=== PATIENT | male | born 1955 | race Caucasian/White ===

== ENCOUNTER 2017-07-08 16:45 | Emergency (ER) | payer BC ==
--- NOTE | 2017-07-08 17:24 | EDM.PDOC ---
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 There is no redness warmth or swelling again no trauma to the knee no fever nausea vomiting chills sweats chest pain shortness breath headache dizziness palpitation about a urine symptoms ] Review of systems: As per history of present illness and below otherwise all systems reviewed and negative. Past medical history: As per history of present illness and as reviewed below otherwise noncontributory. Surgical history: As per history of present illness and as reviewed below otherwise noncontributory. Social history: No reported history of drug or alcohol abuse. Family history: As per history of present illness and as reviewed below otherwise noncontributory. Physical exam: HEENT: Atraumatic, normocephalic, pupils reactive, negative for conjunctival pallor or scleral icterus, mucous membranes moist, throat clear, neck supple, nontender, trachea midline. Lungs: Clear to auscultation, breath sounds equal bilaterally, chest nontender. Heart: S1S2, regular, negative for clicks, rubs, or JVD. Abdomen: Soft, nondistended, nontender. Negative for masses or hepatosplenomegaly. Negative for costovertebral tenderness. Pelvis: Stable nontender. Genitourinary: Deferred. Rectal: Deferred. Extremities: Atraumatic, negative for cords or calf pain. Neurovascular unremarkable. Neuro: Awake, alert, oriented. Cranial nerves II through XII unremarkable. Cerebellum unremarkable. Motor and sensory unremarkable throughout. Exam nonfocal. Left knee exam hip and ankle and affected patient complains of knee pain with weightbearing with loadbearing maneuvers centers pain and less motion of the joint passively entire limb is neurovascularly intact there is no redness warmth or swelling no open lesion no ballooning of the patellofemoral joint line tenderness Diagnostics: [Left knee 3 views CBC uric acid ] Therapeutics: [Continue Celebrex Tramadol 50 mg by mouth 3 times a day when necessary #30 no refill Crutches provided weightbearing as tolerated Did provide a work note for the patient for 48 hours Follow-up with orthopedist consider steroid injection and discuss knee replacement further Return to ER if redness warmth or becomes swollen ] Impression: [Left knee pain Degenerative changes left knee] Definitive disposition and diagnosis as appropriate pending reevaluation and review of above. Left Knee Pain Score (Numeric/FACES): 10 - Related Data Allergies Allergy/AdvReac Type Severity Reaction Status Date / Time No Known Allergies Allergy Verified 07/08/17 17:18 Home Meds: Home Meds Celecoxib [CeleBREX] 100 mg PO DAILY 07/08/17 [History] Polyethylene Glycol 3350 [MiraLAX] 1 dose PO DAILY 07/08/17 [History] Past Medical History - Infectious Disease History Infectious Disease History: Reports: Chicken Pox, Measles, Mumps - Past Surgical History GI Surgical History: Reports: Other (See Below) Other GI Surgeries/Procedures: 1970 colon resection Other Musculoskeletal Surgeries/Procedures:: right knee hx of spurs Social & Family History - Family History Family Medical History: Noncontributory - Tobacco Use Smoking Status *Q: Current Every Day Smoker Years of Tobacco use: 40 Packs/Tins Daily: 1 Second Hand Smoke Exposure: No - Caffeine Use Caffeine Use: Reports: Coffee, Soda - Recreational Drug Use Recreational Drug Use: No Review of Systems - Review of Systems Review Of Systems: ROS reveals no pertinent complaints other than HPI. ED EXAM, GENERAL - Physical Exam Exam: See Below Course - Vital Signs Last Recorded V/S: Last Vital Signs Temp 98.9 F 07/08/17 17:12 Pulse 92 07/08/17 17:12 Resp 18 07/08/17 17:12 BP 123/78 07/08/17 17:12 Pulse Ox 95 07/08/17 17:12 - Orders/Labs/Meds Orders: Active Orders 24 hr Category Date Time Status Knee 3V Lt [CR] Stat Exams 07/08/17 17:19 Taken Labs: Laboratory Tests 07/08/17 07/08/17 Range/Units 17:29 17:29 WBC 12.11 H (4.0-11.0) K/uL RBC 5.05 (4.50-5.90) M/uL Hgb 16.1 (13.0-17.0) g/dL Hct 45.7 (38.0-50.0) % MCV 90.5 (80.0-98.0) fL MCH 31.9 (27.0-32.0) pg MCHC 35.2 (31.0-37.0) g/dL RDW Std Deviation 41.1 (28.0-62.0) fl RDW Coeff of Ad 13 (11.0-15.0) % Plt Count 235 (150-400) K/uL MPV 9.20 (7.40-12.00) fL Neut % (Auto) 72.8 (48.0-80.0) % Lymph % (Auto) 18.7 (16.0-40.0) % [place] % (Auto) 6.9 (0.0-15.0) % Eos % (Auto) 1.3 (0.0-7.0) % Baso % (Auto) 0.3 (0.0-1.5) % Neut # (Auto) 8.8 H (1.4-5.7) K/uL Lymph # (Auto) 2.3 (0.6-2.4) K/uL [place] # (Auto) 0.8 (0.0-0.8) K/uL Eos # (Auto) 0.2 (0.0-0.7) K/uL Baso # (Auto) 0.0 (0.0-0.1) K/uL Nucleated RBC % 0.0 /100WBC Nucleated RBCs # 0 K/uL Uric Acid 6.1 (2.1-7.4) mg/dL Departure - Departure Time of Disposition: 18:49 Disposition: Home, Self-Care 01 Condition: Good Clinical Impression: Left knee pain, Osteoarthritis - Discharge Information Referrals: Vernon Maldonado MD [Primary Care Provider] - Forms: ED Department Discharge Additional Instructions: ER referral to orthopedist for evaluation and treatment within the next week Crutches weightbearing as tolerated Return if symptoms persist or worsen Return if redness warmth versus significant swelling develops Follow-up with primary care as needed Medication as prescribed Continue Celebrex as directed [facility] [address], [address] [place] [address] my orthopedic The following information is given to patients seen in the emergency department who are being discharged to home. This information is to outline your options for follow-up care. We provide all patients seen in our emergency department with a follow-up referral. The need for follow-up, as well as the timing and circumstances, are variable depending upon the specifics of your emergency department visit. If you don't have a primary care physician on staff, we will provide you with a referral. We always advise you to contact your personal physician following an emergency department visit to inform them of the circumstance of the visit and for follow-up with them and/or the need for any referrals to a consulting specialist. The emergency department will also refer you to a specialist when appropriate. This referral assures that you have the opportunity for follow-up care with a specialist. All of these measure are taken in an effort to provide you with optimal care, which includes your follow-up. Under all circumstances we always encourage you to contact your private physician who remains a resource for coordinating your care. When calling for follow-up care, please make the office aware that this follow-up is from your recent emergency room visit. If for any reason you are refused follow-up, please contact the [facility] emergency department at and asked to speak to the emergency department charge nurse. - My Orders Last 24 Hours: My Active Orders 07/08/17 17:19 Knee 3V Lt [CR] Stat - Assessment/Plan Last 24 Hours: My Active Orders 07/08/17 17:19 Knee 3V Lt [CR] Stat
[2017-07-08 19:10] VITALS: BP 143/90
--- NOTE | 2017-07-09 14:40 | CR ---
EXAM DATE: 07/08/17 PATIENT'S AGE: 62 Patient: PRUDENCIO ELAINE Facility: [place], [place] Site . Site : 1955 Study: XRay Knee Left [id number]/15/2018 5:56:30 PM Ordering Physician: Doctor Waddell Final Report: INDICATION: Pain left knee with no history of trauma TECHNIQUE: Three views left knee COMPARISON: None FINDINGS: Bones: Alignment is normal. No fractures or bone lesions. Joint spaces: Patellofemoral joint degenerative changes. Soft tissues: Unremarkable. IMPRESSION: Patellofemoral joint degenerative changes. Dictated by Jose Angel Stanley MD @ 07/08/2017 6:36:02 PM Dictated by: Jose Angel Stanley MD @ 07/08/2017 18:36:10 (Electronic Signature) Report Signed by Proxy. [email or web address]
== END 2017-07-08 19:18 | disposition home or self-care (01) ==
LOC: MW.ED 16:45
DX: M25.562 Pain in left knee (principal); M19.90 Unspecified osteoarthritis, unspecified site; F17.210 Nicotine dependence, cigarettes, uncomplicated; Z79.899 Other long term (current) drug therapy
CPT/HCPCS: 36415; 73562-26-LT; 73562-LT; 84550; 85025; 99283

== ENCOUNTER 2019-01-27 18:12 | Emergency (ER) | payer BC ==
[2019-01-27] MEDS ORDERED: Ondansetron 4 MG/2 ML SDV IVPUSH ONE (18:29)
[2019-01-27] MEDS ORDERED: Sodium Chloride 0.9% 1,000 ML IV ONE (18:29)
--- NOTE | 2019-01-27 18:32 | EDM.PDOC ---
ED HPI GENERAL MEDICAL PROBLEM - General Chief Complaint: Abdominal Pain Stated Complaint: POSSIBLE KIDNEY STONE Time Seen by Provider: 01/27/19 18:18 Source of Information: Reports: Patient History Limitations: Reports: No Limitations - History of Present Illness INITIAL COMMENTS - FREE TEXT/NARRATIVE: HISTORY AND PHYSICAL: History of present illness: Presents reporting left flank and testicular pain. The patient states he has a history of renal stones. Once he was able to pass the stone, once he had a lithotripsy. He states this pain is very similar. He denies fever, back pain, dysuria, hematuria. He had a brown formed stool 2 days ago. Review of systems: As per history of present illness and below otherwise all systems reviewed and negative. Past medical history: As per history of present illness and as reviewed below otherwise noncontributory. Surgical history: As per history of present illness and as reviewed below otherwise noncontributory. Social history: No reported history of drug or alcohol abuse. Family history: As per history of present illness and as reviewed below otherwise noncontributory. Physical exam: HEENT: Atraumatic, normocephalic, pupils reactive, negative for conjunctival pallor or scleral icterus, mucous membranes moist, throat clear, neck supple, nontender, trachea midline. Lungs: Clear to auscultation, breath sounds equal bilaterally, chest nontender. Heart: S1S2, regular, negative for clicks, rubs, or JVD. Abdomen: Soft, nondistended, nontender. Negative for masses or hepatosplenomegaly. Negative for costovertebral tenderness. Pelvis: Stable nontender. Genitourinary: Deferred. Rectal: Deferred. Extremities: Atraumatic, negative for cords or calf pain. Neurovascular unremarkable. Neuro: Awake, alert, oriented. Cranial nerves II through XII unremarkable. Cerebellum unremarkable. Motor and sensory unremarkable throughout. Exam nonfocal. Diagnostics: [] Therapeutics: [] Impression: [] Plan: [] Definitive disposition and diagnosis as appropriate pending reevaluation and review of above. Left Lower Abdominal Pain Score (Numeric/FACES): 5 - Related Data Allergies Allergy/AdvReac Type Severity Reaction Status Date / Time No Known Allergies Allergy Verified 01/27/19 18:26 Home Meds: Home Meds Celecoxib [CeleBREX] 200 mg PO DAILY 07/08/17 [History] Polyethylene Glycol 3350 [MiraLAX] 1 dose PO DAILY 07/08/17 [History] metFORMIN HCl [Metformin HCl] 500 mg PO BID #14 tablet 01/27/19 [Rx] Past Medical History - Infectious Disease History Infectious Disease History: Reports: Chicken Pox, Measles, Mumps - Past Surgical History GI Surgical History: Reports: Other (See Below) Other GI Surgeries/Procedures: 1970 colon resection Other Musculoskeletal Surgeries/Procedures:: right knee hx of spurs Social & Family History - Family History Family Medical History: Noncontributory - Caffeine Use Caffeine Use: Reports: Coffee, Soda ED ROS GENERAL - Review of Systems Review Of Systems: ROS reveals no pertinent complaints other than HPI. ED EXAM, RENAL/ - Physical Exam Exam: See Below Exam Limited By: No Limitations General Appearance: Alert, No Apparent Distress Ears: Normal External Exam Nose: Normal Inspection Throat/Mouth: Normal Inspection Head: Atraumatic, Normocephalic Neck: Normal Inspection Respiratory/Chest: No Respiratory Distress, Lungs Clear, Normal Breath Sounds Cardiovascular: Normal Peripheral Pulses, Regular Rate, Rhythm, No Murmur GI/Abdominal: Soft, Non-Tender, No Distention Back Exam: Normal Inspection. No: CVA Tenderness (L), CVA Tenderness (R) Extremities: Normal Inspection Neurological: Alert, Oriented, Normal Cognition Psychiatric: Normal Affect, Normal Mood Lymphatic: No Adenopathy Course - Vital Signs Last Recorded V/S: Last Vital Signs Temp 36.3 C 01/27/19 18:23 Pulse 86 01/27/19 18:23 Resp 18 01/27/19 18:23 BP 142/97 H 01/27/19 18:23 Pulse Ox 95 01/27/19 18:23 - Orders/Labs/Meds Labs: Laboratory Tests 01/27/19 01/27/19 01/27/19 Range/Units 18:30 18:30 18:32 WBC 13.16 H (4.0-11.0) K/uL RBC 4.99 (4.50-5.90) M/uL Hgb 15.8 (13.0-17.0) g/dL Hct 46.6 (38.0-50.0) % MCV 93.4 (80.0-98.0) fL MCH 31.7 (27.0-32.0) pg MCHC 33.9 (31.0-37.0) g/dL RDW Std Deviation 44.2 (28.0-62.0) fl RDW Coeff of Ad 13 (11.0-15.0) % Plt Count 217 (150-400) K/uL MPV 9.70 (7.40-12.00) fL Add Manual Diff YES Neutrophils % (Manual) 66 (48.0-80.0) % Lymphocytes % (Manual) 19 (16.0-40.0) % Monocytes % (Manual) 10 (0.0-15.0) % Eosinophils % (Manual) 1 (0.0-7.0) % Metamyelocytes % 2 % Myelocytes % 2 % Nucleated RBC % 0.0 /100WBC Absolute Seg Neuts 8.7 H (1.4-5.7) Lymphocytes # (Manual) 2.5 H (0.6-2.4) Monocytes # (Manual) 1.3 H (0.0-0.8) Eosinophils # (Manual) 0.1 (0.0-0.7) Absolute Metamyelocyte 0.3 Absolute Myelocytes 0.3 Nucleated RBCs # 0 K/uL Sodium 142 (136-148) mmol/L Potassium 4.4 (3.5-5.1) mmol/L Chloride 106 (98-107) mmol/L Carbon Dioxide 22.6 (21.0-32.0) mmol/L BUN 16 (7.0-18.0) mg/dL Creatinine 1.3 (0.8-1.3) mg/dL Est Cr Clr Drug Dosing 67.44 mL/min Estimated GFR (MDRD) 56.1 ml/min Glucose 280 H (74-106) mg/dL Calcium 9.2 (8.5-10.1) mg/dL Total Bilirubin 0.4 (0.2-1.0) mg/dL AST 14 L (15-37) IU/L ALT 31 (14-63) IU/L Alkaline Phosphatase 96 (46-116) U/L Total Protein 7.0 (6.4-8.2) g/dL Albumin 3.8 (3.4-5.0) g/dL Globulin 3.2 (2.6-4.0) g/dL Albumin/Globulin Ratio 1.2 (0.9-1.6) Urine Color YELLOW Urine Appearance CLEAR Urine pH 5.0 (5.0-8.0) Ur Specific [place] >= 1.030 (1.001-1.035) Urine Protein TRACE H (NEGATIVE) mg/dL Urine Glucose (UA) >=1000 (NEGATIVE) mg/dL Urine Ketones NEGATIVE (NEGATIVE) mg/dL Urine Occult Blood MODERATE H (NEGATIVE) Urine Nitrite NEGATIVE (NEGATIVE) Urine Bilirubin NEGATIVE (NEGATIVE) Urine Urobilinogen 0.2 (<2.0) EU/dL Ur Leukocyte Esterase NEGATIVE (NEGATIVE) Urine RBC 1-3 (0-2/HPF) Urine WBC 0-1 (0-5/HPF) Ur Epithelial Cells RARE (NONE-FEW) Urine Bacteria RARE (NEGATIVE) Hyaline Casts 0-1 (0-2/LPF) Urine Mucus LIGHT (NONE-MOD) Meds: Medications Discontinued Medications Generic Name Dose Route Start Last Admin Trade Name Freq PRN Reason Stop Dose Admin Sodium Chloride 1,000 mls @ 999 mls/hr 01/27/19 18:29 01/27/19 18:36 Normal Saline IV 01/27/19 19:29 999 mls/hr STAT ONE Administration Ketorolac Tromethamine 30 mg 01/27/19 19:29 01/27/19 19:34 Toradol IVPUSH 01/27/19 19:30 30 mg ONETIME ONE Administration Ondansetron HCl 4 mg 01/27/19 18:29 01/27/19 18:36 Zofran IVPUSH 01/27/19 18:30 4 mg ONETIME ONE Administration - Re-Assessments/Exams Free Text/Narrative Re-Assessment/Exam: 01/27/19 20:40 Patient states that a couple of years ago he was told that he had "prediabetes" . That was never followed up on. The patient was informed that he has out right diabetes and he must follow-up with his primary care provider in a inclusion special educator. Departure - Departure Time of Disposition: 20:40 Disposition: Home, Self-Care 01 Condition: Good Clinical Impression: Diabetes Qualifiers: Diabetes mellitus type: type 2 Constipation Qualifiers: Constipation type: unspecified constipation type Qualified Code(s): K59.00 - Constipation, unspecified - Discharge Information *PRESCRIPTION DRUG MONITORING PROGRAM REVIEWED*: Not Applicable *COPY OF PRESCRIPTION DRUG MONITORING REPORT IN PATIENT DRE: Not Applicable Referrals: Vernon Maldonado MD [Primary Care Provider] - Forms: ED Department Discharge Additional Instructions: The following information is given to patients seen in the emergency department who are being discharged to home. This information is to outline your options for follow-up care. We provide all patients seen in our emergency department with a follow-up referral. The need for follow-up, as well as the timing and circumstances, are variable depending upon the specifics of your emergency department visit. If you don't have a primary care physician on staff, we will provide you with a referral. We always advise you to contact your personal physician following an emergency department visit to inform them of the circumstance of the visit and for follow-up with them and/or the need for any referrals to a consulting specialist. The emergency department will also refer you to a specialist when appropriate. This referral assures that you have the opportunity for follow-up care with a specialist. All of these measure are taken in an effort to provide you with optimal care, which includes your follow-up. Under all circumstances we always encourage you to contact your private physician who remains a resource for coordinating your care. When calling for follow-up care, please make the office aware that this follow-up is from your recent emergency room visit. If for any reason you are refused follow-up, please contact the [facility] Emergency Department at and asked to speak to the emergency department charge nurse. 1. MiraLAX 1 capful daily until regular soft bowel movements then as needed. 2. Drink plenty of fluids including electrolyte solutions 3. You MUST follow-up with your primary care provider and a inclusion special educator to develop a diabetic management plan. You have been given a Rx for metformin. This is a first line medication for diabetes. Note that initially, metformin often causes stomach upset and nausea. This common and usually resolves with continued use.
[2019-01-27 18:59] LABS: CARBON DIOXIDE,CO2 22.6 mmol/L (21.0-32.0); POTASSIUM,K 4.4 mmol/L (3.5-5.1)
[2019-01-27] MEDS ORDERED: Ketorolac 30 MG/ML SDV IVPUSH ONE (19:29)
--- NOTE | 2019-01-27 20:10 | CT ---
INDICATION: left side/flank/testicular pain, hx stones INDICATION: Left-sided flank and testicular pain, history of urinary tract stones TECHNIQUE: CT abdomen and pelvis without contrast. COMPARISON: None FINDINGS: Lower chest: Unremarkable. Liver: Unremarkable. Spleen: Unremarkable. Pancreas: Unremarkable. Gallbladder and bile ducts: Unremarkable. Kidneys: Unremarkable. No kidney or ureteral stones and no hydronephrosis. Adrenal glands: Unremarkable. GI tract: Diffuse colonic fecal retention. Vascular structures: Unremarkable. Lymph nodes: Unremarkable. Miscellaneous: Small fat containing umbilical hernia. No free air or significant free fluid. Pelvic Organs: Unremarkable. Bones: Unremarkable for age. IMPRESSION: No urinary tract stones or hydronephrosis. Diffuse colonic fecal retention. Dictated by Jose Angel Stanley MD @ 01/27/2019 8:08:36 PM Please note that all CT scans at this facility use dose modulation, iterative reconstruction, and/or weight-based dosing when appropriate to reduce radiation dose to as low as reasonably achievable. Dictated by: Jose Angel Stanley MD @ 01/27/2019 20:08:50 (Electronically Signed)
[2019-01-27 21:11] VITALS: BP 127/74; PULSE 69
== END 2019-01-27 21:08 | disposition home or self-care (01) ==
LOC: MW.ED 18:12
DX: K59.00 Constipation, unspecified (principal); E11.9 Type 2 diabetes mellitus without complications; Z79.84 Long term (current) use of oral hypoglycemic drugs; Z79.899 Other long term (current) drug therapy
CPT/HCPCS: 36415; 74176; 80053; 81001; 85025; 96361; 96374; 96375; 99284; J1885; J2405; J7040; 99283

== ENCOUNTER 2019-02-05 09:47 | Emergency (ER) | payer BC ==
[2019-02-05] MEDS ORDERED: Sodium Chloride 0.9% 1,000 ML IV ONE (10:17)
--- NOTE | 2019-02-05 10:25 | EDM.PDOC ---
ED HPI GENERAL MEDICAL PROBLEM - General Chief Complaint: Gastrointestinal Problem Stated Complaint: MAY HAVE A BOWEL BLOCKAGE Time Seen by Provider: 02/05/19 10:09 Source of Information: Reports: Patient History Limitations: Reports: No Limitations - History of Present Illness INITIAL COMMENTS - FREE TEXT/NARRATIVE: HISTORY AND PHYSICAL: History of present illness: Patient is a 63-year-old male presents to the ED today with concern of generalized abdominal pain (08/03) and not being able to pass a full bowel movement for 2 weeks but does state he has been able to pass smaller amounts. Patient states he was seen in the ED 2 weeks ago for constipation. Patient states at that time he had started trying magnesium citrate and started MiraLAX without passing a large stool and only small stools. Patient states he's been taking one cap full of MiraLAX daily. Patient states he's also had 4 individual bottles of magnesium citrate over the course of the last 2 weeks without being able to have a complete bowel movement. Patient states he has passed gas but feels that it is quite difficult to do this and has to "push harder ". Patient denies any health history. Patient denies fever, chills, chest pain, shortness of breath, or cough. Denies headache, neck stiff ness, change in vision, syncope, or near syncope. Denies nausea, vomiting, diarrhea, constipation, or dysuria. Has not noted any blood in urine or stool. Patient has been eating and drinking appropriately. Review of systems: As per history of present illness and below otherwise all systems reviewed and negative. Past medical history: As per history of present illness and as reviewed below otherwise noncontributory. Surgical history: As per history of present illness and as reviewed below otherwise noncontributory. Social history: See social history for further information Family history: As per history of present illness and as reviewed below otherwise noncontributory. Physical exam: General: Patient is alert, oriented, and in no acute distress. Patient sitting comfortably on exam table. HEENT: Atraumatic, normocephalic, pupils equal and reactive bilaterally, negative for conjunctival pallor or scleral icterus, mucous membranes moist, TMs normal bilaterally, throat clear, neck supple, nontender, trachea midline. No drooling or trismus noted. No meningeal signs. No hot potato voice noted. Lungs: Clear to auscultation, breath sounds equal bilaterally, chest nontender. Heart: S1S2, regular rate and rhythm without overt murmur Abdomen: Obese, Soft, nondistended. Generalized mild pain to with deep palpation without guarding. Negative rebound. Negative for masses or hepatosplenomegaly. Negative for costovertebral tenderness. Pelvis: Stable nontender. Genitourinary: Deferred. Rectal: Deferred. Skin: Intact, warm, dry. No lesions or rashes noted. Extremities: Atraumatic, negative for cords or calf pain. Neurovascular unremarkable. Neuro: Awake, alert, oriented. Cranial nerves II through XII unremarkable. Cerebellum unremarkable. Motor and sensory unremarkable throughout. Exam nonfocal. Notes: Discussed the importance for follow-up with a primary care provider. Voices understanding and is agreeable to plan of care. Denies any further questions or concerns at this time. Diagnostics: CBC, CMP, EKG, UA, Lipase, Abd/Pelvic CT w/ contrast Therapeutics: NS Prescription: None Impression: Constipation Plan: 1. You can alternate ibuprofen and Tylenol as checked for pain and discomfort. 2. You can continue to use OTC constipation medications as discussed. 3. Follow-up with a primary care provider as discussed. Return to the ED as needed and as discussed. Definitive disposition and diagnosis as appropriate pending reevaluation and review of above. Abdominal Pain Score (Numeric/FACES): 1 - Related Data Allergies Allergy/AdvReac Type Severity Reaction Status Date / Time contrast dye Allergy Other Uncoded 02/05/19 11:24 Home Meds: Home Meds Celecoxib [CeleBREX] 200 mg PO DAILY 07/08/17 [History] Polyethylene Glycol 3350 [MiraLAX] 1 dose PO DAILY 07/08/17 [History] metFORMIN HCl [Metformin HCl] 500 mg PO BID #14 tablet 01/27/19 [Rx] Past Medical History Cardiovascular History: Reports: Hypertension Musculoskeletal History: Reports: Arthritis - Infectious Disease History Infectious Disease History: Reports: Chicken Pox, Measles, Mumps - Past Surgical History GI Surgical History: Reports: Other (See Below) Other GI Surgeries/Procedures: 1970 colon resection Other Musculoskeletal Surgeries/Procedures:: right knee hx of spurs Social & Family History - Family History Family Medical History: Noncontributory - Tobacco Use Smoking Status *Q: Current Every Day Smoker Years of Tobacco use: 40 Packs/Tins Daily: 0.5 - Caffeine Use Caffeine Use: Reports: Coffee - Recreational Drug Use Recreational Drug Use: No ED ROS GENERAL - Review of Systems Review Of Systems: ROS reveals no pertinent complaints other than HPI. ED EXAM, GENERAL - Physical Exam Exam: See Below (See dictation) Course - Vital Signs Last Recorded V/S: Last Vital Signs Temp 36.1 C 02/05/19 09:57 Pulse 97 02/05/19 09:57 Resp 18 02/05/19 09:57 BP 139/91 H 02/05/19 09:57 Pulse Ox 95 02/05/19 09:57 - Orders/Labs/Meds Orders: Active Orders 24 hr Category Date Time Status EKG Documentation Completion [RC] STAT Care 02/05/19 10:10 Active Labs: Laboratory Tests 02/05/19 02/05/19 02/05/19 Range/Units 10:20 10:20 10:20 WBC 9.08 (4.0-11.0) K/uL RBC 5.02 (4.50-5.90) M/uL Hgb 16.0 (13.0-17.0) g/dL Hct 46.4 (38.0-50.0) % MCV 92.4 (80.0-98.0) fL MCH 31.9 (27.0-32.0) pg MCHC 34.5 (31.0-37.0) g/dL RDW Std Deviation 43.2 (28.0-62.0) fl RDW Coeff of Ad 13 (11.0-15.0) % Plt Count 220 (150-400) K/uL MPV 9.40 (7.40-12.00) fL Neut % (Auto) 67.2 (48.0-80.0) % Lymph % (Auto) 21.6 (16.0-40.0) % Beltrami % (Auto) 7.9 (0.0-15.0) % Eos % (Auto) 2.5 (0.0-7.0) % Baso % (Auto) 0.8 (0.0-1.5) % Neut # (Auto) 6.1 H (1.4-5.7) K/uL Lymph # (Auto) 2.0 (0.6-2.4) K/uL Beltrami # (Auto) 0.7 (0.0-0.8) K/uL Eos # (Auto) 0.2 (0.0-0.7) K/uL Baso # (Auto) 0.1 (0.0-0.1) K/uL Nucleated RBC % 0.0 /100WBC Nucleated RBCs # 0 K/uL Sodium 141 (136-148) mmol/L Potassium 4.6 (3.5-5.1) mmol/L Chloride 107 (98-107) mmol/L Carbon Dioxide 21.4 (21.0-32.0) mmol/L BUN 11 (7.0-18.0) mg/dL Creatinine 1.0 (0.8-1.3) mg/dL Est Cr Clr Drug Dosing 87.67 mL/min Estimated GFR (MDRD) > 60.0 ml/min Glucose 151 H (74-106) mg/dL Calcium 9.2 (8.5-10.1) mg/dL Total Bilirubin 0.5 (0.2-1.0) mg/dL AST 14 L (15-37) IU/L ALT 30 (14-63) IU/L Alkaline Phosphatase 104 (46-116) U/L Total Protein 7.0 (6.4-8.2) g/dL Albumin 4.0 (3.4-5.0) g/dL Globulin 3.0 (2.6-4.0) g/dL Albumin/Globulin Ratio 1.3 (0.9-1.6) Lipase 243 (73-393) U/L Urine Color Urine Appearance Urine pH (5.0-8.0) Ur Specific V[place]rie (1.001-1.035) Urine Protein (NEGATIVE) mg/dL Urine Glucose (UA) (NEGATIVE) mg/dL Urine Ketones (NEGATIVE) mg/dL Urine Occult Blood (NEGATIVE) Urine Nitrite (NEGATIVE) Urine Bilirubin (NEGATIVE) Urine Urobilinogen (<2.0) EU/dL Ur Leukocyte Esterase (NEGATIVE) Urine RBC (0-2/HPF) Urine WBC (0-5/HPF) Ur Epithelial Cells (NONE-FEW) Urine Bacteria (NEGATIVE) Urine Mucus (NONE-MOD) 02/05/19 Range/Units 10:30 WBC (4.0-11.0) K/uL RBC (4.50-5.90) M/uL Hgb (13.0-17.0) g/dL Hct (38.0-50.0) % MCV (80.0-98.0) fL MCH (27.0-32.0) pg MCHC (31.0-37.0) g/dL RDW Std Deviation (28.0-62.0) fl RDW Coeff of Ad (11.0-15.0) % Plt Count (150-400) K/uL MPV (7.40-12.00) fL Neut % (Auto) (48.0-80.0) % Lymph % (Auto) (16.0-40.0) % Beltrami % (Auto) (0.0-15.0) % Eos % (Auto) (0.0-7.0) % Baso % (Auto) (0.0-1.5) % Neut # (Auto) (1.4-5.7) K/uL Lymph # (Auto) (0.6-2.4) K/uL Beltrami # (Auto) (0.0-0.8) K/uL Eos # (Auto) (0.0-0.7) K/uL Baso # (Auto) (0.0-0.1) K/uL Nucleated RBC % /100WBC Nucleated RBCs # K/uL Sodium (136-148) mmol/L Potassium (3.5-5.1) mmol/L Chloride (98-107) mmol/L Carbon Dioxide (21.0-32.0) mmol/L BUN (7.0-18.0) mg/dL Creatinine (0.8-1.3) mg/dL Est Cr Clr Drug Dosing mL/min Estimated GFR (MDRD) ml/min Glucose (74-106) mg/dL Calcium (8.5-10.1) mg/dL Total Bilirubin (0.2-1.0) mg/dL AST (15-37) IU/L ALT (14-63) IU/L Alkaline Phosphatase (46-116) U/L Total Protein (6.4-8.2) g/dL Albumin (3.4-5.0) g/dL Globulin (2.6-4.0) g/dL Albumin/Globulin Ratio (0.9-1.6) Lipase (73-393) U/L Urine Color YELLOW Urine Appearance CLEAR Urine pH 5.0 (5.0-8.0) Ur Specific V[place]rie >= 1.030 (1.001-1.035) Urine Protein TRACE H (NEGATIVE) mg/dL Urine Glucose (UA) 500 H (NEGATIVE) mg/dL Urine Ketones NEGATIVE (NEGATIVE) mg/dL Urine Occult Blood SMALL H (NEGATIVE) Urine Nitrite NEGATIVE (NEGATIVE) Urine Bilirubin NEGATIVE (NEGATIVE) Urine Urobilinogen 0.2 (<2.0) EU/dL Ur Leukocyte Esterase NEGATIVE (NEGATIVE) Urine RBC 1-2 (0-2/HPF) Urine WBC 0-1 (0-5/HPF) Ur Epithelial Cells FEW (NONE-FEW) Urine Bacteria FEW (NEGATIVE) Urine Mucus LIGHT (NONE-MOD) Meds: Medications Discontinued Medications Generic Name Dose Route Start Last Admin Trade Name Freq PRN Reason Stop Dose Admin Sodium Chloride 1,000 mls @ 999 mls/hr 02/05/19 10:17 02/05/19 10:38 Normal Saline IV 02/05/19 11:17 999 mls/hr BOLUS ONE Administration Departure - Departure Time of Disposition: 12:21 Disposition: Home, Self-Care 01 Clinical Impression: Constipation Qualifiers: Constipation type: unspecified constipation type Qualified Code(s): K59.00 - Constipation, unspecified - Discharge Information Instructions: Constipation, Adult Referrals: Vernon Maldonado MD [Primary Care Provider] - Forms: ED Department Discharge Additional Instructions: The following information is given to patients seen in the emergency department who are being discharged to home. This information is to outline your options for follow-up care. We provide all patients seen in our emergency department with a follow-up referral. The need for follow-up, as well as the timing and circumstances, are variable depending upon the specifics of your emergency department visit. If you don't have a primary care physician on staff, we will provide you with a referral. We always advise you to contact your personal physician following an emergency department visit to inform them of the circumstance of the visit and for follow-up with them and/or the need for any referrals to a consulting specialist. The emergency department will also refer you to a specialist when appropriate. This referral assures that you have the opportunity for follow-up care with a specialist. All of these measure are taken in an effort to provide you with optimal care, which includes your follow-up. Under all circumstances we always encourage you to contact your private physician who remains a resource for coordinating your care. When calling for follow-up care, please make the office aware that this follow-up is from your recent emergency room visit. If for any reason you are refused follow-up, please contact the [facility] Emergency Department at and asked to speak to the emergency department charge nurse. [facility] [address] [place] [id number] [facility] [address] [place] [id number] 1. You can alternate ibuprofen and Tylenol as checked for pain and discomfort. 2. You can continue to use OTC constipation medications as discussed. 3. Follow-up with a primary care provider as discussed. Return to the ED as needed and as discussed. - My Orders Last 24 Hours: My Active Orders 02/05/19 10:10 EKG Documentation Completion [RC] STAT - Assessment/Plan Last 24 Hours: My Active Orders 02/05/19 10:10 EKG Documentation Completion [RC] STAT
[2019-02-05 11:04] LABS: CHLORIDE,CL 107 mmol/L (98-107); SODIUM,NA 141 mmol/L (136-148)
--- NOTE | 2019-02-05 12:16 | CT ---
INDICATION: Abdominal pain COMPARISON: 01/27/2019 TECHNIQUE: CT examination of the abdomen and pelvis was performed without contrast enhancement using 3 mm thick axial sections from the lung bases through the pubic symphysis. Oral contrast was not administered. Please note that all CT scans at this facility use dose modulation, iterative reconstruction, and/or weight-based dosing when appropriate to reduce radiation dose to as low as reasonably achievable. FINDINGS: There is no change in a moderate amount of fecal material distributed throughout the colon consistent with constipation. In the abdomen, the unenhanced liver, spleen, pancreas, and adrenals are normal in appearance. The unenhanced kidneys are normal in appearance. The gallbladder is normal in appearance. The abdominal aorta is normal in caliber with no sign of dilatation. There is no sign of retroperitoneal mass or adenopathy. The stomach, loops of small bowel, and colon in the abdomen are normal in appearance. There is no change in a tiny fat containing periumbilical hernia. In the pelvis, the appendix is normal in appearance with no sign of inflammatory process. The loops of small bowel and colon in the pelvis are normal in appearance. The prostate remains mildly enlarged. It is otherwise normal in appearance. The urinary bladder is normal in appearance. There is no sign of pelvic or inguinal mass or adenopathy. The lung bases are clear. There is no change in prominent L5-S1 and moderate L4-5 disc degenerative disease. There is mild diffuse disc bulging and posterior osteophytic ridging at these levels, as well as at L2-3 and L3-4. This may result in spinal stenosis and if clinically indicated, MRI of the lumbar spine may be of benefit. There is no change in mild scoliosis of the lumbar spine convex towards the left. IMPRESSION: No change in a moderate amount of fecal material distributed throughout the colon consistent with constipation. Nothing else seen that would suggest a cause for abdominal pain. Normal CT of the abdomen without contrast. CT of the pelvis shows no change in mild enlargement of the prostate. Please note that all CT scans at this facility use dose modulation, iterative reconstruction, and/or weight-based dosing when appropriate to reduce radiation dose to as low as reasonably achievable. Dictated by Vinny Hollis MD @ Feb 05 2019 12:06PM Signed by Dr. Vinny Hollis @ Feb 05 2019 12:13PM
[2019-02-05 12:35] VITALS: BP 136/89
== END 2019-02-05 12:30 | disposition home or self-care (01) ==
LOC: MW.ED 09:47
DX: K59.00 Constipation, unspecified (principal); I10 Essential (primary) hypertension; M19.90 Unspecified osteoarthritis, unspecified site; F17.210 Nicotine dependence, cigarettes, uncomplicated; Z91.048 Other nonmedicinal substance allergy status; Z79.899 Other long term (current) drug therapy
CPT/HCPCS: 36415; 74176; 80053; 81001; 83690; 85025; 93005; 96360; 99284; J7040

== ENCOUNTER 2019-09-02 06:34 | Day surgery (SDC) | payer BC ==
[~2019-09-02 06:34] MED LIST: Famotidine 20 MG/2 ML SDV IVPUSH SCH; Ropivacaine 49.25 ML, Ketorolac 30 MG, EPINEPHrine 0.5 MG, cloNIDine 80 MCG in Sodium C... INJECT SCH; Scopolamine 1.5 MG Transdermal Patch TRDERM SCH
[2019-09-02] MEDS ORDERED: Ondansetron 4 MG/2 ML SDV ONE (07:03)
[2019-09-02] MEDS ORDERED: Propofol 200 MG/20 ML SDV ONE ×6 (07:03→09:00)
[2019-09-02] MEDS ORDERED: Dexamethasone 4 MG/ML 5 ML MDV ONE (07:03)
[2019-09-02] MEDS ORDERED: Lidocaine 2% 100 MG/5 ML Syringe ONE (07:03)
[2019-09-02] MEDS ORDERED: Morphine 10 MG/ML Syringe ONE (07:04)
[2019-09-02] MEDS ORDERED: fentaNYL 100 MCG/2 ML SDV ONE (07:04)
[2019-09-02] MEDS ORDERED: Midazolam 1 MG/ML 2 ML SDV ONE (07:04)
--- NOTE | 2019-09-02 07:08 | PCM.PREANE ---
Preanesthetic Assessment - Anesthesia/Transfusion/Family Hx Anesthesia History: Prior Anesthesia Without Reaction Family History of Anesthesia Reaction: No Transfusion History: No Prior Transfusion(s) Intubation History: Unknown - Review of Systems General: No Symptoms Pulmonary: No Symptoms Cardiovascular: No Symptoms Gastrointestinal: No Symptoms Neurological: No Symptoms Other: Reports: None - Physical Assessment Height: 6 ft 1 in Weight: 120.202 kg ASA Class: 2 Mental Status: Alert & Oriented x3 Airway Class: Mallampati = 2 Dentition: Reports: Dentures (upper) Thyro-Mental Finger Breadths: 3 Mouth Opening Finger Breadths: 3 ROM/Head Extension: Full Lungs: Clear to Auscultation, Normal Respiratory Effort Cardiovascular: Regular Rate, Regular Rhythm - Allergies Allergies/Adverse Reactions: Allergies Allergy/AdvReac Type Severity Reaction Status Date / Time contrast dye Allergy Other Uncoded 02/05/19 11:24 - Blood Blood Available: No - Anesthesia Plan Pre-Op Medication Ordered: None - Acknowledgements Anesthesia Type Planned: Spinal (general anesthesia back-up plan) Pt an Appropriate Candidate for the Planned Anesthesia: Yes Alternatives and Risks of Anesthesia Discussed w Pt/Guardian: Yes Pt/Guardian Understands and Agrees with Anesthesia Plan: Yes PreAnesthesia Questionnaire HEENT History: Reports: Other (See Below) Other HEENT History: wears glasses, has top denture Cardiovascular History: Reports: High Cholesterol Respiratory History: Reports: None Gastrointestinal History: Reports: Other (See Below) (colon resection in for possible Hirschprung disease, colonoscopy 01/09 was ok) Genitourinary History: Reports: Renal Calculus Musculoskeletal History: Reports: Fracture, Osteoarthritis Other Musculoskeletal History: hx fx clavicle and head injury Neurological History: Reports: Head Trauma Other Neuro History: 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 per patient), Obesity/BMI 30+ (BMI 35) Hematologic History: Reports: None Immunologic History: Reports: None Oncologic (Cancer) History: Reports: None Dermatologic History: Reports: Other (See Below) Other Dermatologic History: rash in left inner arm - Infectious Disease History Infectious Disease History: Reports: Chicken Pox, Measles, Mumps - Past Surgical History Head Surgeries/Procedures: Reports: None HEENT Surgical History: Reports: None Cardiovascular Surgical History: Reports: None Respiratory Surgical History: Reports: None GI Surgical History: Reports: Colon, Colonoscopy, Other (See Below) Other GI Surgeries/Procedures: 1970 colon resection for possible hirschsprung's disease Male Surgical History: Reports: Lithotripsy ([facility]) Endocrine Surgical History: Reports: None Neurological Surgical History: Reports: None Musculoskeletal Surgical History: Reports: Arthroscopic Knee Other Musculoskeletal Surgeries/Procedures:: right knee hx of spurs Oncologic Surgical History: Reports: None Dermatological Surgical History: Reports: None - SUBSTANCE USE Smoking Status *Q: Current Every Day Smoker (1/2 ppd) Tobacco Use Within Last Twelve Months: Cigarettes - HOME MEDS Home Medications: Home Meds Celecoxib [CeleBREX] 200 mg PO DAILY 07/08/17 [History] polyethylene glycoL 3350 [MiraLAX] 1 dose PO DAILY 07/08/17 [History] metFORMIN HCl [Metformin HCl] 500 mg PO BID #14 tablet 01/27/19 [Rx] Acetaminophen [Tylenol Extra Strength] 2 tab PO ASDIRECTED PRN 08/28/19 [History ] Rosuvastatin Calcium 10 mg PO DAILY 08/28/19 [History] - CURRENT (IN HOUSE) MEDS Current Meds: Current Medications Famotidine (Pepcid) 40 mg IVPUSH ONARRIVE OPAL Cefazolin Sodium/Dextrose 2 gm (/ Premix) 50 mls @ 100 mls/hr IV ONCALL OPAL Ropivacaine 49.25 ml/Ketorolac Tromethamine 30 mg/Epinephrine HCl 0.5 mg/ Clonidine HCl 80 mcg/ Sodium Chloride 75 mls @ 50 mls/sec INJECT ASDIRECTED OPAL Lactated Ringer's (Ringers, Lactated) 1,000 mls @ 100 mls/hr IV ASDIRECTED OPAL Scopolamine (Transderm-Scop) 1.5 mg TRDERM ONARRIVE OPAL Discontinued Medications Tranexamic Acid (Cyklokapron) 1,000 mg TOP ASDIRECTED ONE Stop: 09/02/19 06:01
[2019-09-02] MEDS: Lactated Ringers 1,000 ML IV SCH ×2 (07:15→18:28)
[2019-09-02] MEDS ORDERED: Aluminum Hydroxide/Magnesium Hydroxide/Simethicone Susp 30 ML Cup PO PRN (07:33)
[2019-09-02] MEDS ORDERED: Morphine 2 MG/ML Syringe IVPUSH PRN (07:33)
[2019-09-02] MEDS ORDERED: oxyCODONE 5 MG Tab PO PRN (07:33)
[2019-09-02] MEDS ORDERED: Ondansetron 4 MG/2 ML SDV IVPUSH PRN (07:33)
[2019-09-02] MEDS ORDERED: Docusate Sodium 100 MG Cap PO PRN (07:33)
[2019-09-02] MEDS ORDERED: traMADol 50 MG Tab PO PRN ×2 (07:33→12:00)
[2019-09-02] MEDS ORDERED: Sodium Chloride 0.9% 10 ML Syringe FLUSH PRN (07:33)
[2019-09-02] MEDS ORDERED: diphenhydrAMINE 25 MG Cap PO PRN (07:33)
[2019-09-02] MEDS ORDERED: Sodium Chloride 0.9% 2.5 ML Syringe FLUSH PRN (07:33)
[2019-09-02] MEDS ORDERED: Bisacodyl 10 MG Supp RECTAL PRN (07:33)
[2019-09-02] MEDS ORDERED: ceFAZolin 2 GM in Premix Bag 1 BAG IV SCH (08:00)
[2019-09-02] MEDS ORDERED: ePHEDrine 50 MG/ML SDV ONE (08:19)
[2019-09-02] MEDS ORDERED: Sodium Chloride 0.9% 20 ML ONE (08:20)
[2019-09-02] MEDS ORDERED: Sodium Chloride 0.9% 40 ML ONE (08:26)
[2019-09-02] MEDS ORDERED: ceFAZolin 1 GM Vial ONE (08:26)
[2019-09-02] MEDS ORDERED: metFORMIN 500 MG Tab PO SCH (09:00)
[2019-09-02] MEDS ORDERED: Aspirin 325 MG Tab PO SCH (09:00)
[2019-09-02] MEDS ORDERED: Polyethylene Glycol 3350 Powder 17 GM Packet PO SCH (09:00)
[2019-09-02] MEDS: Acetaminophen/oxyCODONE 325-5 MG Tab PO PRN ×2 (11:18→20:53)
[2019-09-02] MEDS: Ketorolac 15 MG/ML SDV IVPUSH SCH ×3 (11:27→18:45)
--- NOTE | 2019-09-02 11:27 | PCM.POSTAN ---
POST ANESTHESIA ASSESSMENT - MENTAL STATUS Mental Status: Alert, Oriented - VITAL SIGNS Vital Signs: Last Vital Signs Temp 36.0 C L 09/02/19 09:53 Pulse 69 09/02/19 10:45 Resp 19 09/02/19 10:45 BP 105/64 09/02/19 10:45 Pulse Ox 94 L 09/02/19 10:45 - RESPIRATORY Respiratory Status: Respiratory Rate WNL, Airway Patent, O2 Saturation Stable - CARDIOVASCULAR CV Status: Pulse Rate WNL, Blood Pressure Stable - GASTROINTESTINAL GI Status: No Symptoms - PAIN Pain Score: 0 - POST OP HYDRATION Hydration Status: Adequate & Stable - OBSERVATIONS Free Text/Narrative:: No anesthesia problems
[2019-09-02] MEDS: metFORMIN 500 MG Tab PO SCH ×2 (11:34→20:36)
--- NOTE | 2019-09-02 11:47 | OR ---
SURGEON: Koby Gonzalez DATE OF PROCEDURE: 09/02/2019 PREOPERATIVE DIAGNOSIS: Right knee primary osteoarthritis. POSTOPERATIVE DIAGNOSIS: Right knee primary osteoarthritis. PROCEDURE: Right knee total knee arthroplasty. PRIMARY SURGEON: Koby Gonzalez DO. FORTUNE TELLER: RONNIE Puckett. ROLE OF FORTUNE TELLER: Nurse practitioner, RONNIE Puckett, played an essential role in assisting in this case, helping to position the patient, retract structures as needed, as well as suturing and cutting sutures as indicated. Her presence improved patient's safety and decreased operative time. ANESTHESIA: Spinal plus conscious sedation. FLUID: Lactated Ringer's solution. ESTIMATED BLOOD LOSS: 150 mL. COMPLICATIONS: None. SPECIMEN: None. DISCHARGE DISPOSITION: Stable to PACU. INSTRUMENTATION: DePuy size 8 femur; size 9 tibia; size 8, 8 mm polyethylene tibial insert; and 41 mm domed polyethylene patella. HISTORY AND INDICATIONS FOR PROCEDURE: The patient was seen preoperatively in the clinic. He had failed nonoperative treatment. Preoperative imaging confirmed the above-mentioned diagnosis. Risks and goals of the procedure explained to the patient. Informed consent was obtained. DETAILS OF PROCEDURE: The patient was seen preoperatively by myself and the Anesthesia staff in the preoperative holding area where the operative site was marked. He was brought to the operative suite by the Anesthesia staff where spinal anesthesia was administered plus conscious sedation. All extremities were found to be well padded. A well-padded tourniquet was placed on the right thigh. The right lower extremity was then prepped and draped in a sterile manner. Time-out was called identifying the correct patient, the correct procedure, the correct site, and that antibiotics had been given within appropriate period of time. The right lower extremity was exsanguinated. Tourniquet was raised to 250 mmHg. A midline incision was made three fingerbreadths proximal to the patella, down to the level of tibial tubercle. Medial parapatellar arthrotomy was made. Bleeding was controlled with Bovie electrocautery. A full synovectomy was performed. The patella was everted. The knee was flexed. Two perpendicular cuts were made on the patella, then the knee was extended. This measured a 41. Three lugs were drilled and the patellar trial was inserted. The knee was again flexed. The distal femur was reamed. The guide was set at 10 mm distal cut, 5 mm valgus. This was pinned in place with the guide. Intramedullary portion of the guide was removed. The distal cut was then made and the guide was removed. The posterior condylar guide was then inserted. This measured an 8, two pins were placed. We removed the guide and then placed chamfer blocks and then two other pins were placed. The anterior, posterior, and chamfer cuts were then made. I then brought Hohmann posteriorly and two Hohmanns to protect the collaterals and used an extramedullary tibial guide and made a 4 mm proximal tibial cut. I then rasped my sulcus on the femur. I then used a lamina screen printing cloth spreader and removed any posterior osteophytes from the remainder of the posterior, medial, and lateral meniscus that was left. I then anteriorized the tibia again with Hohmanns and protected it. I then placed a size 9 base plate. Tamped the tower in place, reamed, and tamped my base plate into position. I then placed my femur, drilled the lugs, and then inserted a size 8, 7 mm polyethylene, which provided good stability throughout flexion and extension without being too tight. I then removed all my components, copiously irrigated with saline, and then cemented my components in place with a size 8, 7 mm polyethylene trial. I let that dry and then removed the polyethylene trial. After drying the tourniquet was let down in 45 minutes. TXA was used after the tourniquet was let down. We then copiously irrigated with saline, removed any extra cement. I went up to an 8 mm polyethylene, which I thought was a better fit. We then removed the polyethylene trial and then inserted my final polyethylene tibial insert. This provided excellent stability throughout range of motion. I irrigated again with pulse lavage as well as iodine. Inserted my periarticular injection and then closed with two [id number] #5 Ethibond sutures followed by 0 Stratafix in a watertight continuous manner to close the arthrotomy followed by subcutaneous layer closure with #1 Stratafix followed by skin isabel, Betadine-soaked Adaptic, fluffs, Federico. The patient was then allowed to awaken from conscious sedation and taken to the PACU in stable condition. [id number] / MODL /[id number]
--- NOTE | 2019-09-02 12:13 | PCM.CONS ---
H&P History of Present Illness - General Date of Service: 09/02/19 Admit Problem/Dx: Admission Diagnosis/Problem Admission Diagnosis/Problem Knee pain Source of Information: Patient, Family History Limitations: Reports: No Limitations - History of Present Illness Initial Comments - Free Text/Narative: 64-year-old male admitted after having right total knee replacement. Medicine was consulted for management of comorbidities. He has a PMH of hyperlipidemia and DM type 2. Patient reports having osteoarthritis in his knees for several years. Patient manages his type 2 DM with metformin and reports his last hemoglobin A1c was ~7.0 checked 4 months ago. Patient reports feeling well since returning from surgery earlier today. Pain is well controlled. He denies having any fevers, chills, sore throat, cough, blurry vision, chest pain, SOB, n /v/d, numbness, tingling, blood in stool or blood in urine. - Related Data Allergies/Adverse Reactions: Allergies Allergy/AdvReac Type Severity Reaction Status Date / Time contrast dye Allergy Dizziness Uncoded 09/02/19 11:38 Home Medications: Home Meds Celecoxib [CeleBREX] 200 mg PO DAILY 07/08/17 [History] polyethylene glycoL 3350 [MiraLAX] 1 dose PO DAILY 07/08/17 [History] metFORMIN HCl [Metformin HCl] 500 mg PO BID #14 tablet 01/27/19 [Rx] Acetaminophen [Tylenol Extra Strength] 2 tab PO ASDIRECTED PRN 08/28/19 [History ] Rosuvastatin Calcium 10 mg PO DAILY 08/28/19 [History] Past Medical History HEENT History: Reports: Other (See Below) Other HEENT History: wears glasses, has top denture Cardiovascular History: Reports: High Cholesterol Respiratory History: Reports: None Gastrointestinal History: Reports: Other (See Below) Genitourinary History: Reports: Renal Calculus Musculoskeletal History: Reports: Fracture, Osteoarthritis Other Musculoskeletal History: hx fx clavicle and head injury Neurological History: Reports: Head Trauma Other Neuro History: 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 Psychiatric History: Reports: None Endocrine/Metabolic History: Reports: Diabetes, Type II, Obesity/BMI 30+ Hematologic History: Reports: None Immunologic History: Reports: None Oncologic (Cancer) History: Reports: None Dermatologic History: Reports: Other (See Below) Other Dermatologic History: rash in left inner arm - Infectious Disease History Infectious Disease History: Reports: Chicken Pox, Measles, Mumps - Past Surgical History Head Surgeries/Procedures: Reports: None HEENT Surgical History: Reports: None Cardiovascular Surgical History: Reports: None Respiratory Surgical History: Reports: None GI Surgical History: Reports: Colon, Colonoscopy, Other (See Below) Other GI Surgeries/Procedures: 1970 colon resection for possible hirschsprung's disease Male Surgical History: Reports: Lithotripsy ([facility]) Endocrine Surgical History: Reports: None Neurological Surgical History: Reports: None Musculoskeletal Surgical History: Reports: Arthroscopic Knee Other Musculoskeletal Surgeries/Procedures:: right knee hx of spurs Oncologic Surgical History: Reports: None Dermatological Surgical History: Reports: None Social & Family History - Family History Family Medical History: Noncontributory - Tobacco Use Smoking Status *Q: Current Every Day Smoker Years of Tobacco use: 35 Packs/Tins Daily: 0.5 - Caffeine Use Caffeine Use: Reports: Coffee - Recreational Drug Use Drug Use in Last 12 Months: No H&P Review of Systems - Review of Systems: Review Of Systems: Comprehensive ROS is negative, except as noted in HPI. Exam - Exam Exam: See Below - Vital Signs Vital Signs: Last Vital Signs Temp 96.8 F L 09/02/19 09:53 Pulse 69 09/02/19 10:45 Resp 19 09/02/19 10:45 BP 105/64 09/02/19 10:45 Pulse Ox 94 L 09/02/19 10:45 Weight: 265 lb - Exam General: Alert, Oriented, Cooperative HEENT: Conjunctiva Clear, EOMI, Hearing Intact, Pupils Equal Neck: Supple, Trachea Midline Lungs: Clear to Auscultation, Normal Respiratory Effort Cardiovascular: Regular Rate, Regular Rhythm GI/Abdominal Exam: Normal Bowel Sounds, Soft, Non-Tender, No Distention Extremities: No Pedal Edema (SCD's on), Other (Right Knee: dressings in place) Neurological: Cranial Nerves Intact, Normal Speech Neuro Extensive - Mental Status: Alert, Oriented x3, Normal Mood/Affect Psychiatric: Alert, Normal Affect, Normal Mood - Patient Data Lab Results Last 24 hrs: Laboratory Results - last 24 hr 09/02/19 09/02/19 Range/Units 07:07 11:19 POC Glucose 174 H (60-110) mg/dL Blood Type A POSITIVE Antibody Screen NEGATIVE Sepsis Event Note - Focused Exam Vital Signs: Vital Signs Temp Pulse Resp BP Pulse Ox 09/02/19 10:45 69 19 105/64 94 L 09/02/19 10:40 69 20 113/67 93 L 09/02/19 10:35 69 22 H 105/66 94 L 09/02/19 10:30 71 22 H 104/63 94 L 09/02/19 10:25 67 19 101/59 L 94 L 09/02/19 10:20 70 20 105/63 94 L 09/02/19 10:15 69 22 H 100/61 95 09/02/19 10:10 72 19 112/60 95 09/02/19 10:05 72 18 106/63 94 L 09/02/19 10:00 75 19 110/62 93 L 09/02/19 09:53 96.8 F L 82 16 108/64 93 L 09/02/19 06:45 97.2 F 81 15 125/72 95 Date Exam was Performed: 09/02/19 Time Exam was Performed: 12:07 Consult PN Assessment/Plan Procedures: Procedures ASSAY OF BLOOD/URIC ACID (07/08/17) ASSAY OF LIPASE (02/05/19) COMPLETE CBC W/AUTO DIFF WBC (02/05/19) COMPREHEN METABOLIC PANEL (02/05/19) CT ABD & PELVIS W/O CONTRAST (02/05/19) ELECTROCARDIOGRAM TRACING (02/05/19) EMERGENCY DEPT VISIT (02/05/19) EMERGENCY DEPT VISIT (07/08/17) HYDRATE IV INFUSION ADD-ON (01/27/19) HYDRATION IV INFUSION INIT (02/05/19) ROUTINE VENIPUNCTURE (02/05/19) THER/PROPH/DIAG INJ IV PUSH (01/27/19) TX/PRO/DX INJ NEW DRUG ADDON (01/27/19) URINALYSIS AUTO W/SCOPE (02/05/19) X-RAY EXAM KNEE 4 OR MORE (07/16/17) X-RAY EXAM L-S SPINE 2/3 VWS (01/21/15) X-RAY EXAM OF KNEE 1 OR 2 (05/26/19) X-RAY EXAM OF KNEE 3 (07/08/17) Problem List Initiated/Reviewed/Updated: Yes My Orders Last 24 Hours: My Active Orders 09/02/19 12:06 Accu Check [Blood Glucose Check, Bedside] [RC] TIDAC 09/02/19 17:00 Insulin Aspart [NovoLOG] See Protocol SUBCUT TIDAC 09/02/19 Dinner ADA Diabetic [[place] [employer] Diet] [DIET] Plan: Assessment and Plan: 1. Right knee osteoarthritis S/P right TKR POD#0: - Pain control and DVT prophylaxis per orthopedic surgery. - PT/OT. 2. Diabetes mellitus type 2: - Continue metformin, low-dose SSI, accuchek TIDAC. ADA diet. - Will check HgbA1C. 3. Past medical history of hyperlipidemia and constipation: - Resume home medications.
--- NOTE | 2019-09-02 12:16 | CR ---
Right knee: AP and lateral views of the right knee were obtained. Comparison: Previous right knee study of 05/26/19. Knee prosthesis is seen. Components are aligned. Skin isabel are present. No acute fracture or other bony abnormality is seen. Soft tissues air is present. Impression: 1. Satisfactory postop radiographic appearance of recently placed right knee prosthesis. Diagnostic code #1 This report was dictated in MDT
--- NOTE | 2019-09-02 13:11 | PCM.OPNOTE ---
- General Post-Op/Procedure Note Date of Surgery/Procedure: 09/02/19 Operative Procedure(s): r tka Pre Op Diagnosis: r knee primary oa Post-Op Diagnosis: Same Anesthesia Technique: Combo Spinal/Epidural, Moderate Sedation Primary Surgeon: Koby Gonzalez Manager Of Data: Rylie Packer EBL in mLs: 200 Complications: None Condition: Good Free Text/Narrative:: Intake & Output 09/01/19 09/02/19 09/02/19 22:59 06:59 14:59 Intake Total 2000 Output Total 100 Balance 1900
[2019-09-02] MEDS: ceFAZolin 2 GM in Premix Bag 1 BAG IV SCH (15:27)
[2019-09-02] MEDS ORDERED: Insulin Aspart 100 Units/ML 3 ML Pen SUBCUT SCH (17:00)
[2019-09-02] MEDS: Insulin Aspart 100 Units/ML 3 ML Pen SUBCUT SCH (17:05)
[2019-09-02] MEDS ORDERED: Rosuvastatin 10 MG Tab PO SCH (21:00)
[2019-09-03] MEDS: ceFAZolin 2 GM in Premix Bag 1 BAG IV SCH (00:39)
[2019-09-03] MEDS: Ketorolac 15 MG/ML SDV IVPUSH SCH (01:27)
[2019-09-03 06:44] LABS: HEMOGLOBIN A1C 7.2 % (4.5-6.2)
[2019-09-03 06:46] LABS: CARBON DIOXIDE,CO2 26.6 mmol/L (21.0-32.0); POTASSIUM,K 4.8 mmol/L (3.5-5.1)
[2019-09-03] MEDS: Insulin Aspart 100 Units/ML 3 ML Pen SUBCUT SCH ×2 (06:47→11:36)
[2019-09-03] MEDS ORDERED: Famotidine 20 MG Tab PO SCH (07:30)
[2019-09-03] MEDS ORDERED: Polyethylene Glycol 3350 Powder 17 GM Packet PO SCH ×2 (09:00)
[2019-09-03] MEDS ORDERED: Aspirin 325 MG Tab PO SCH (09:00)
[2019-09-03] MEDS: metFORMIN 500 MG Tab PO SCH (09:01)
[2019-09-03] MEDS: Acetaminophen/oxyCODONE 325-5 MG Tab PO PRN (10:59)
--- NOTE | 2019-09-03 11:18 | PCM.CONSN ---
- General Info Date of Service: 09/03/19 Subjective Update: No complaints at bedside this morning. Reports pain well controlled. Denies fevers, chills, SOB, chest pain, n/v/d. - Patient Data Vitals - Most Recent: Last Vital Signs Temp 98.3 F 09/03/19 07:59 Pulse 80 09/03/19 07:59 Resp 18 09/03/19 07:59 BP 104/58 L 09/03/19 07:59 Pulse Ox 96 09/03/19 07:59 Weight - Most Recent: 265 lb I&O - Last 24 Hours: Intake & Output 09/02/19 09/03/19 09/03/19 22:59 06:59 14:59 Intake Total 400 1492 Output Total 650 575 Balance -250 917 Lab Results Last 24 Hours: Laboratory Results - last 24 hr 09/02/19 09/02/19 09/03/19 Range/Units 11:19 16:58 06:20 Hgb 11.7 L (13.0-17.0) g/dL Hct 35.5 L (38.0-50.0) % Sodium (136-148) mmol/L Potassium (3.5-5.1) mmol/L Chloride (98-107) mmol/L Carbon Dioxide (21.0-32.0) mmol/L BUN (7.0-18.0) mg/dL Creatinine (0.8-1.3) mg/dL Est Cr Clr Drug Dosing mL/min Estimated GFR (MDRD) ml/min Glucose (74-106) mg/dL POC Glucose 174 H 206 H (60-110) mg/dL Hemoglobin A1c (4.5-6.2) % Calcium (8.5-10.1) mg/dL 09/03/19 09/03/19 09/03/19 Range/Units 06:20 06:20 06:46 Hgb (13.0-17.0) g/dL Hct (38.0-50.0) % Sodium 141 (136-148) mmol/L Potassium 4.8 (3.5-5.1) mmol/L Chloride 106 (98-107) mmol/L Carbon Dioxide 26.6 (21.0-32.0) mmol/L BUN 26 H (7.0-18.0) mg/dL Creatinine 1.3 (0.8-1.3) mg/dL Est Cr Clr Drug Dosing 66.58 mL/min Estimated GFR (MDRD) 55.9 ml/min Glucose 137 H (74-106) mg/dL POC Glucose 141 H (60-110) mg/dL Hemoglobin A1c 7.2 H (4.5-6.2) % Calcium 8.3 L (8.5-10.1) mg/dL Med Orders - Current: Current Medications Al Hydroxide/Mg Hydroxide (Mag-Al Plus) 30 ml PO Q4H PRN PRN Reason: Indigestion Aspirin (Aspirin) 325 mg PO DAILY [facility] Last Admin: 09/03/19 09:01 Dose: 325 mg Bisacodyl (Dulcolax) 10 mg RECTAL DAILY PRN PRN Reason: Constipation Diphenhydramine HCl (Benadryl) 25 - 50 mg PO Q6H PRN PRN Reason: Itching Docusate Sodium (Colace) 100 mg PO BID PRN PRN Reason: Constipation Famotidine (Pepcid) 40 mg PO ACBREAKFAST [facility] Last Admin: 09/03/19 06:45 Dose: 40 mg Lactated Ringer's (Ringers, Lactated) 1,000 mls @ 100 mls/hr IV ASDIRECTED [facility] Last Admin: 09/02/19 18:28 Dose: 100 mls/hr Insulin Aspart (Novolog) 0 unit SUBCUT TIDAC [facility]; Protocol Last Admin: 09/03/19 06:47 Dose: Not Given Metformin HCl (Glucophage) 500 mg PO BID [facility] Last Admin: 09/03/19 09:01 Dose: 500 mg Morphine Sulfate (Morphine) 1 - 2 mg IVPUSH Q3H PRN PRN Reason: Pain Last Admin: 09/02/19 15:24 Dose: 2 mg Ondansetron HCl (Zofran) 4 mg IVPUSH Q6H PRN PRN Reason: Nausea/Vomiting Last Admin: 09/02/19 08:30 Dose: 4 mg Oxycodone HCl (Oxycodone) 5 - 10 mg PO Q4H PRN PRN Reason: Pain Oxycodone/Acetaminophen (Percocet 325-5 Mg) 1 - 2 tab PO Q4H PRN PRN Reason: Pain Last Admin: 09/03/19 10:59 Dose: 2 tab Polyethylene Glycol (Miralax) 17 gm PO DAILY [facility] Last Admin: 09/03/19 09:02 Dose: 17 gm Rosuvastatin Calcium (Crestor) 10 mg PO BEDTIME [facility] Last Admin: 09/02/19 20:37 Dose: 10 mg Scopolamine (Transderm-Scop) 1.5 mg TRDERM ONARRIVE [facility] Last Admin: 09/02/19 07:30 Dose: 1.5 mg Sodium Chloride (Saline Flush) 2.5 ml FLUSH ASDIRECTED PRN PRN Reason: Keep Vein Open Tramadol HCl (Ultram) 50 - 100 mg PO Q6H PRN PRN Reason: Pain Last Admin: 09/02/19 17:08 Dose: 100 mg Discontinued Medications Aspirin (Aspirin) 325 mg PO DAILY [facility] Last Admin: 09/02/19 11:24 Dose: Not Given Cefazolin Sodium (Ancef) Confirm Administered Dose 2 gm .ROUTE .STK-MED ONE Stop: 09/02/19 08:27 Dexamethasone (Dexamethasone) Confirm Administered Dose 20 mg .ROUTE .STK-MED ONE Stop: 09/02/19 07:04 Ephedrine Sulfate (Ephedrine Sulfate) Confirm Administered Dose 50 mg .ROUTE .STK-MED ONE Stop: 09/02/19 08:20 Famotidine (Pepcid) 40 mg IVPUSH ONARRIVE [facility] Last Admin: 09/02/19 07:28 Dose: 40 mg Fentanyl (Sublimaze) Confirm Administered Dose 100 mcg .ROUTE .STK-MED ONE Stop: 09/02/19 07:05 Cefazolin Sodium/Dextrose 2 gm (/ Premix) 50 mls @ 100 mls/hr IV ONCALL [facility] Ropivacaine 49.25 ml/Ketorolac Tromethamine 30 mg/Epinephrine HCl 0.5 mg/ Clonidine HCl 80 mcg/ Sodium Chloride 75 mls @ 50 mls/sec INJECT ASDIRECTED [facility] Cefazolin Sodium/Dextrose 2 gm (/ Premix) 50 mls @ 100 mls/hr IV Q8H [facility] Stop: 09/03/19 00:29 Last Admin: 09/03/19 00:39 Dose: 100 mls/hr Sodium Chloride (Normal Saline) Confirm Administered Dose 20 mls @ as directed .ROUTE .STK-MED ONE Stop: 09/02/19 08:21 Sodium Chloride (Normal Saline) Confirm Administered Dose 40 mls @ as directed .ROUTE .STK-MED ONE Stop: 09/02/19 08:27 Insulin Aspart (Novolog) 0 unit SUBCUT TIDAC [facility]; Protocol Ketorolac Tromethamine (Toradol) 15 mg IVPUSH Q6H [facility] Stop: 09/03/19 05:00 Last Admin: 09/03/19 01:27 Dose: 15 mg Lidocaine HCl (Xylocaine 2%) Confirm Administered Dose 100 mg .ROUTE .STK-MED ONE Stop: 09/02/19 07:04 Metformin HCl (Glucophage) 500 mg PO BID [facility] Last Admin: 09/02/19 11:24 Dose: Not Given Midazolam HCl (Versed 1 Mg/Ml) Confirm Administered Dose 2 mg .ROUTE .STK-MED ONE Stop: 09/02/19 07:05 Morphine Sulfate (Morphine) Confirm Administered Dose 10 mg .ROUTE .STK-MED ONE Stop: 09/02/19 07:05 Ondansetron HCl (Zofran) Confirm Administered Dose 4 mg .ROUTE .STK-MED ONE Stop: 09/02/19 07:04 Polyethylene Glycol (Miralax) 17 gm PO DAILY [facility] Last Admin: 09/02/19 11:25 Dose: Not Given Polyethylene Glycol (Miralax) gm PO DAILY [facility] Propofol (Diprivan 20 Ml) Confirm Administered Dose 400 mg .ROUTE .STK-MED ONE Stop: 09/02/19 07:04 Propofol (Diprivan 20 Ml) Confirm Administered Dose 200 mg .ROUTE .STK-MED ONE Stop: 09/02/19 08:29 Propofol (Diprivan 20 Ml) Confirm Administered Dose 200 mg .ROUTE .STK-MED ONE Stop: 09/02/19 08:32 Propofol (Diprivan 20 Ml) Confirm Administered Dose 200 mg .ROUTE .STK-MED ONE Stop: 09/02/19 08:45 Propofol (Diprivan 20 Ml) Confirm Administered Dose 200 mg .ROUTE .STK-MED ONE Stop: 09/02/19 09:00 Propofol (Diprivan 20 Ml) Confirm Administered Dose 200 mg .ROUTE .STK-MED ONE Stop: 09/02/19 09:01 Sodium Chloride (Saline Flush) 10 ml FLUSH ASDIRECTED PRN PRN Reason: Keep Vein Open Tramadol HCl (Ultram) 50 - 100 mg PO Q6H PRN PRN Reason: Pain Tranexamic Acid (Cyklokapron) 1,000 mg TOP ASDIRECTED ONE Stop: 09/02/19 06:01 Last Admin: 09/02/19 11:16 Dose: Not Given Tranexamic Acid (Cyklokapron) Confirm Administered Dose 1,000 mg .ROUTE .STK- MED ONE Stop: 09/02/19 07:23 - Exam General: Alert, Oriented, Cooperative, No Acute Distress Lungs: Clear to Auscultation, Normal Respiratory Effort Cardiovascular: Regular Rate, Regular Rhythm GI/Abdominal Exam: Normal Bowel Sounds, Soft, Non-Tender, No Distention Extremities: Other (Right Knee: dressings c/d/i. No lower extremity edema appreciated b/l. SCD's on.) Sepsis Event Note - Evaluation Sepsis Screening Result: No Definite Risk - Focused Exam Vital Signs: Vital Signs Temp Pulse Resp BP Pulse Ox 09/03/19 07:59 98.3 F 80 18 104/58 L 96 09/03/19 04:00 97.8 F 76 17 108/57 L 95 09/03/19 00:35 98 F 80 17 103/53 L 96 Date Exam was Performed: 09/03/19 Time Exam was Performed: 11:18 Consult PN Assessment/Plan Procedures: Procedures ASSAY OF BLOOD/URIC ACID (07/08/17) ASSAY OF LIPASE (02/05/19) COMPLETE CBC W/AUTO DIFF WBC (02/05/19) COMPREHEN METABOLIC PANEL (02/05/19) CT ABD & PELVIS W/O CONTRAST (02/05/19) ELECTROCARDIOGRAM TRACING (02/05/19) EMERGENCY DEPT VISIT (02/05/19) EMERGENCY DEPT VISIT (07/08/17) HYDRATE IV INFUSION ADD-ON (01/27/19) HYDRATION IV INFUSION INIT (02/05/19) ROUTINE VENIPUNCTURE (02/05/19) THER/PROPH/DIAG INJ IV PUSH (01/27/19) TX/PRO/DX INJ NEW DRUG ADDON (01/27/19) URINALYSIS AUTO W/SCOPE (02/05/19) X-RAY EXAM KNEE 4 OR MORE (07/16/17) X-RAY EXAM L-S SPINE 2/3 VWS (01/21/15) X-RAY EXAM OF KNEE 1 OR 2 (05/26/19) X-RAY EXAM OF KNEE 3 (07/08/17) Problem List Initiated/Reviewed/Updated: Yes My Orders Last 24 Hours: My Active Orders 09/02/19 12:06 Accu Check [Blood Glucose Check, Bedside] [RC] TIDAC 09/02/19 17:00 Insulin Aspart [NovoLOG] 0 unit SUBCUT TIDAC 09/02/19 Dinner ADA Diabetic [[place] [employer] Diet] [DIET] Plan: Assessment and Plan.: 1. Right knee osteoarthritis S/P right TKR POD#1: - Pain control and DVT prophylaxis per orthopedic surgery. - Continue PT/OT. 2. Diabetes mellitus type 2: - HgbA1C was checked and is 7.2. Recommend discharging on home dose of metformin 500 mg BID. Discontinue insulin on discharge. Patient should follow ADA diet. Follow-up with PCP on discharge to monitor blood glucose control. 3. Past medical history of hyperlipidemia and constipation: - Resume home medications.
[2019-09-03 11:56] VITALS: BP 112/67; PULSE 79
--- NOTE | 2019-09-03 11:56 | PCM.SURGPN ---
- General Info Date of Service: 09/03/19 (0800) Date of Surgery/Procedure: 09/02/19 POD#: 1 Post-Op Diagnosis: s/p Right TKA Admission Diagnosis/Problem: Knee pain (Right knee primary OA) Functional Status: Reports: Pain Controlled, Tolerating Diet, Ambulating, Urinating - Review of Systems General: Reports: No Symptoms. Denies: Fever Pulmonary: Reports: No Symptoms. Denies: Shortness of Breath Cardiovascular: Reports: No Symptoms. Denies: Chest Pain Gastrointestinal: Denies: Nausea, Vomiting Musculoskeletal: Reports: Joint Pain (acute post-operative right knee pain) Neurological: Reports: No Symptoms Psychiatric: Reports: No Symptoms - Patient Data Vitals - Most Recent: Last Vital Signs Temp 36.8 C 09/03/19 07:59 Pulse 80 09/03/19 07:59 Resp 18 09/03/19 07:59 BP 104/58 L 09/03/19 07:59 Pulse Ox 96 09/03/19 07:59 Weight - Most Recent: 120.202 kg I&O - Last 24 Hours: Intake & Output 09/02/19 09/03/19 09/03/19 22:59 06:59 14:59 Intake Total 400 1492 Output Total 650 575 Balance -250 917 Lab Results Last 24 Hrs: Laboratory Results - last 24 hr 09/02/19 09/03/19 09/03/19 Range/Units 16:58 06:20 06:20 Hgb 11.7 L (13.0-17.0) g/dL Hct 35.5 L (38.0-50.0) % Sodium 141 (136-148) mmol/L Potassium 4.8 (3.5-5.1) mmol/L Chloride 106 (98-107) mmol/L Carbon Dioxide 26.6 (21.0-32.0) mmol/L BUN 26 H (7.0-18.0) mg/dL Creatinine 1.3 (0.8-1.3) mg/dL Est Cr Clr Drug Dosing 66.58 mL/min Estimated GFR (MDRD) 55.9 ml/min Glucose 137 H (74-106) mg/dL POC Glucose 206 H (60-110) mg/dL Hemoglobin A1c (4.5-6.2) % Calcium 8.3 L (8.5-10.1) mg/dL 09/03/19 09/03/19 09/03/19 Range/Units 06:20 06:46 11:24 Hgb (13.0-17.0) g/dL Hct (38.0-50.0) % Sodium (136-148) mmol/L Potassium (3.5-5.1) mmol/L Chloride (98-107) mmol/L Carbon Dioxide (21.0-32.0) mmol/L BUN (7.0-18.0) mg/dL Creatinine (0.8-1.3) mg/dL Est Cr Clr Drug Dosing mL/min Estimated GFR (MDRD) ml/min Glucose (74-106) mg/dL POC Glucose 141 H 138 H (60-110) mg/dL Hemoglobin A1c 7.2 H (4.5-6.2) % Calcium (8.5-10.1) mg/dL Med Orders - Current: Current Medications Al Hydroxide/Mg Hydroxide (Mag-Al Plus) 30 ml PO Q4H PRN PRN Reason: Indigestion Aspirin (Aspirin) 325 mg PO DAILY [facility] Last Admin: 09/03/19 09:01 Dose: 325 mg Bisacodyl (Dulcolax) 10 mg RECTAL DAILY PRN PRN Reason: Constipation Diphenhydramine HCl (Benadryl) 25 - 50 mg PO Q6H PRN PRN Reason: Itching Docusate Sodium (Colace) 100 mg PO BID PRN PRN Reason: Constipation Famotidine (Pepcid) 40 mg PO ACBREAKFAST [facility] Last Admin: 09/03/19 06:45 Dose: 40 mg Lactated Ringer's (Ringers, Lactated) 1,000 mls @ 100 mls/hr IV ASDIRECTED [facility] Last Admin: 09/02/19 18:28 Dose: 100 mls/hr Insulin Aspart (Novolog) 0 unit SUBCUT TIDAC [facility]; Protocol Last Admin: 09/03/19 11:36 Dose: Not Given Metformin HCl (Glucophage) 500 mg PO BID [facility] Last Admin: 09/03/19 09:01 Dose: 500 mg Morphine Sulfate (Morphine) 1 - 2 mg IVPUSH Q3H PRN PRN Reason: Pain Last Admin: 09/02/19 15:24 Dose: 2 mg Ondansetron HCl (Zofran) 4 mg IVPUSH Q6H PRN PRN Reason: Nausea/Vomiting Last Admin: 09/02/19 08:30 Dose: 4 mg Oxycodone HCl (Oxycodone) 5 - 10 mg PO Q4H PRN PRN Reason: Pain Oxycodone/Acetaminophen (Percocet 325-5 Mg) 1 - 2 tab PO Q4H PRN PRN Reason: Pain Last Admin: 09/03/19 10:59 Dose: 2 tab Polyethylene Glycol (Miralax) 17 gm PO DAILY [facility] Last Admin: 09/03/19 09:02 Dose: 17 gm Rosuvastatin Calcium (Crestor) 10 mg PO BEDTIME [facility] Last Admin: 09/02/19 20:37 Dose: 10 mg Scopolamine (Transderm-Scop) 1.5 mg TRDERM ONARRIVE [facility] Last Admin: 09/02/19 07:30 Dose: 1.5 mg Sodium Chloride (Saline Flush) 2.5 ml FLUSH ASDIRECTED PRN PRN Reason: Keep Vein Open Tramadol HCl (Ultram) 50 - 100 mg PO Q6H PRN PRN Reason: Pain Last Admin: 09/02/19 17:08 Dose: 100 mg Discontinued Medications Aspirin (Aspirin) 325 mg PO DAILY [facility] Last Admin: 09/02/19 11:24 Dose: Not Given Cefazolin Sodium (Ancef) Confirm Administered Dose 2 gm .ROUTE .STK-MED ONE Stop: 09/02/19 08:27 Dexamethasone (Dexamethasone) Confirm Administered Dose 20 mg .ROUTE .STK-MED ONE Stop: 09/02/19 07:04 Ephedrine Sulfate (Ephedrine Sulfate) Confirm Administered Dose 50 mg .ROUTE .STK-MED ONE Stop: 09/02/19 08:20 Famotidine (Pepcid) 40 mg IVPUSH ONARRIVE [facility] Last Admin: 09/02/19 07:28 Dose: 40 mg Fentanyl (Sublimaze) Confirm Administered Dose 100 mcg .ROUTE .STK-MED ONE Stop: 09/02/19 07:05 Cefazolin Sodium/Dextrose 2 gm (/ Premix) 50 mls @ 100 mls/hr IV ONCALL [facility] Ropivacaine 49.25 ml/Ketorolac Tromethamine 30 mg/Epinephrine HCl 0.5 mg/ Clonidine HCl 80 mcg/ Sodium Chloride 75 mls @ 50 mls/sec INJECT ASDIRECTED [facility] Cefazolin Sodium/Dextrose 2 gm (/ Premix) 50 mls @ 100 mls/hr IV Q8H [facility] Stop: 09/03/19 00:29 Last Admin: 09/03/19 00:39 Dose: 100 mls/hr Sodium Chloride (Normal Saline) Confirm Administered Dose 20 mls @ as directed .ROUTE .STK-MED ONE Stop: 09/02/19 08:21 Sodium Chloride (Normal Saline) Confirm Administered Dose 40 mls @ as directed .ROUTE .STK-MED ONE Stop: 09/02/19 08:27 Insulin Aspart (Novolog) 0 unit SUBCUT TIDAC [facility]; Protocol Ketorolac Tromethamine (Toradol) 15 mg IVPUSH Q6H [facility] Stop: 09/03/19 05:00 Last Admin: 09/03/19 01:27 Dose: 15 mg Lidocaine HCl (Xylocaine 2%) Confirm Administered Dose 100 mg .ROUTE .STK-MED ONE Stop: 09/02/19 07:04 Metformin HCl (Glucophage) 500 mg PO BID [facility] Last Admin: 09/02/19 11:24 Dose: Not Given Midazolam HCl (Versed 1 Mg/Ml) Confirm Administered Dose 2 mg .ROUTE .STK-MED ONE Stop: 09/02/19 07:05 Morphine Sulfate (Morphine) Confirm Administered Dose 10 mg .ROUTE .STK-MED ONE Stop: 09/02/19 07:05 Ondansetron HCl (Zofran) Confirm Administered Dose 4 mg .ROUTE .STK-MED ONE Stop: 09/02/19 07:04 Polyethylene Glycol (Miralax) 17 gm PO DAILY [facility] Last Admin: 09/02/19 11:25 Dose: Not Given Polyethylene Glycol (Miralax) gm PO DAILY [facility] Propofol (Diprivan 20 Ml) Confirm Administered Dose 400 mg .ROUTE .STK-MED ONE Stop: 09/02/19 07:04 Propofol (Diprivan 20 Ml) Confirm Administered Dose 200 mg .ROUTE .STK-MED ONE Stop: 09/02/19 08:29 Propofol (Diprivan 20 Ml) Confirm Administered Dose 200 mg .ROUTE .STK-MED ONE Stop: 09/02/19 08:32 Propofol (Diprivan 20 Ml) Confirm Administered Dose 200 mg .ROUTE .STK-MED ONE Stop: 09/02/19 08:45 Propofol (Diprivan 20 Ml) Confirm Administered Dose 200 mg .ROUTE .STK-MED ONE Stop: 09/02/19 09:00 Propofol (Diprivan 20 Ml) Confirm Administered Dose 200 mg .ROUTE .STK-MED ONE Stop: 09/02/19 09:01 Sodium Chloride (Saline Flush) 10 ml FLUSH ASDIRECTED PRN PRN Reason: Keep Vein Open Tramadol HCl (Ultram) 50 - 100 mg PO Q6H PRN PRN Reason: Pain Tranexamic Acid (Cyklokapron) 1,000 mg TOP ASDIRECTED ONE Stop: 09/02/19 06:01 Last Admin: 09/02/19 11:16 Dose: Not Given Tranexamic Acid (Cyklokapron) Confirm Administered Dose 1,000 mg .ROUTE .STK- MED ONE Stop: 09/02/19 07:23 - Exam Wound/Incisions: Dressing Dry and Intact, No Drainage. No: Erythema Quality Assessment: DVT Prophylaxis (ASA, SCD nonoperative leg and early ambulation) General: Alert, Oriented, Cooperative, No Acute Distress HEENT: Pupils Equal Lungs: Normal Respiratory Effort Cardiovascular: Other (PP2+) Extremities: No Pedal Edema, Normal Capillary Refill, Joint Swelling (minimal soft tissue swelling right knee). No: Redness Skin: Warm, Dry Neurological: Normal Speech, Normal Tone Psy/Mental Status: Alert, Normal Affect, Normal Mood Sepsis Event Note - Evaluation Sepsis Screening Result: No Definite Risk - Focused Exam Vital Signs: Vital Signs Temp Pulse Resp BP Pulse Ox 09/03/19 07:59 36.8 C 80 18 104/58 L 96 09/03/19 04:00 36.6 C 76 17 108/57 L 95 09/03/19 00:35 36.6 C 80 17 103/53 L 96 Date Exam was Performed: 09/03/19 Time Exam was Performed: 11:50 - Problem List Review Problem List Initiated/Reviewed/Updated: Yes - My Orders Last 24 Hours: Active Orders 24 hr Category Date Time Status Accu Check [Blood Glucose Check, Bedside] [RC] TIDAC Care 09/02/19 12:06 Active Notify Provider Consults [RC] ASDIRECTED Care 09/02/19 12:57 Active Consult to Physician [CONS] Routine Cons 09/02/19 12:55 Active ADA Diabetic [[place] [employer] Diet] [DIET Diet 09/02/19 Dinner Active ] HEMOGLOBIN/HEMATOCRIT,HH [HEME] DAILY Lab 09/04/19 06:00 Ordered Aspirin Med 09/03/19 09:00 Active 325 mg PO DAILY Famotidine [Pepcid] Med 09/03/19 07:30 Active 40 mg PO ACBREAKFAST Insulin Aspart [NovoLOG] Med 09/02/19 17:00 Active 0 unit SUBCUT TIDAC Rosuvastatin [Crestor] Med 09/02/19 21:00 Active 10 mg PO BEDTIME metFORMIN [Glucophage] Med 09/02/19 11:30 Active 500 mg PO BID polyethylene glycoL 3350 [MiraLAX] Med 09/03/19 09:00 Active 17 gm PO DAILY traMADol [Ultram] Med 09/02/19 12:00 Active 50 - 100 mg PO Q6H PRN Convert IV to Saline Lock [OM.PC] PRN Oth 09/03/19 07:45 Ordered Medication Orders Al Hydroxide/Mg Hydroxide (Mag-Al Plus) 30 ml PO Q4H PRN PRN Reason: Indigestion Aspirin (Aspirin) 325 mg PO DAILY [facility] Last Admin: 09/03/19 09:01 Dose: 325 mg Bisacodyl (Dulcolax) 10 mg RECTAL DAILY PRN PRN Reason: Constipation Diphenhydramine HCl (Benadryl) 25 - 50 mg PO Q6H PRN PRN Reason: Itching Docusate Sodium (Colace) 100 mg PO BID PRN PRN Reason: Constipation Famotidine (Pepcid) 40 mg PO ACBREAKFAST [facility] Last Admin: 09/03/19 06:45 Dose: 40 mg Lactated Ringer's (Ringers, Lactated) 1,000 mls @ 100 mls/hr IV ASDIRECTED [facility] Last Admin: 09/02/19 18:28 Dose: 100 mls/hr Infusion: 09/02/19 17:15 Dose: 100 mls/hr Admin: 09/02/19 07:15 Dose: 100 mls/hr Insulin Aspart (Novolog) 0 unit SUBCUT TIDAC [facility]; Protocol Last Admin: 09/03/19 11:36 Dose: Not Given Admin: 09/03/19 06:47 Dose: Not Given Admin: 09/02/19 17:05 Dose: 2 units Metformin HCl (Glucophage) 500 mg PO BID [facility] Last Admin: 09/03/19 09:01 Dose: 500 mg Admin: 09/02/19 20:36 Dose: 500 mg Admin: 09/02/19 11:34 Dose: 500 mg Morphine Sulfate (Morphine) 1 - 2 mg IVPUSH Q3H PRN PRN Reason: Pain Last Admin: 09/02/19 15:24 Dose: 2 mg Ondansetron HCl (Zofran) 4 mg IVPUSH Q6H PRN PRN Reason: Nausea/Vomiting Last Admin: 09/02/19 08:30 Dose: 4 mg Oxycodone HCl (Oxycodone) 5 - 10 mg PO Q4H PRN PRN Reason: Pain Oxycodone/Acetaminophen (Percocet 325-5 Mg) 1 - 2 tab PO Q4H PRN PRN Reason: Pain Last Admin: 09/03/19 10:59 Dose: 2 tab Admin: 09/02/19 20:53 Dose: 2 tab Admin: 09/02/19 11:18 Dose: 2 tab Polyethylene Glycol (Miralax) 17 gm PO DAILY [facility] Last Admin: 09/03/19 09:02 Dose: 17 gm Rosuvastatin Calcium (Crestor) 10 mg PO BEDTIME [facility] Last Admin: 09/02/19 20:37 Dose: 10 mg Scopolamine (Transderm-Scop) 1.5 mg TRDERM ONARRIVE [facility] Last Admin: 09/02/19 07:30 Dose: 1.5 mg Sodium Chloride (Saline Flush) 2.5 ml FLUSH ASDIRECTED PRN PRN Reason: Keep Vein Open Tramadol HCl (Ultram) 50 - 100 mg PO Q6H PRN PRN Reason: Pain Last Admin: 09/02/19 17:08 Dose: 100 mg - Assessment Assessment (Free Text/Narrative):: 1) s/p Right TKA 2) post-surgical anemia - Plan Plan (Free Text/Narrative):: Overall, Donell is doing well. Reports he slept well last night. Tolerating oral foods/fluids without N/V. Afebrile/VSS. Pain minimal and well controlled with Percocet. Diligent use of ice per [facility] therapy. Reports he felt he did well with PT yesterday, waiting for PT this morning. He does not have walker at home. Rx written for one. DVT prophylaxis : ASA, SCD nonoperative leg and early ambulation. Ancef q8hrs x 2 additional doses completed. Surgical dressing was removed. Incision CDI (isabel) with minimal soft tissue swelling and no active drainage. Large AquaCell dressing applied. Artemio feels ready for discharge today, and I agree with this based on assessment. Will be discharged home later today after PT. Discharged home with his .
== END 2019-09-03 15:00 | disposition home or self-care (01) ==
LOC: MW.MS 06:34 → UNDOADMIN 06:34 → MW.SDS 06:34 → EDSTATUS 09:30 → MW.MS 10:50 → MW.SDS 09-03 15:00
PROVIDERS: ATTEND Orthopaedic Surgery
DX: M17.0 Bilateral primary osteoarthritis of knee (principal); E11.9 Type 2 diabetes mellitus without complications; E78.5 Hyperlipidemia, unspecified; E78.00 Pure hypercholesterolemia, unspecified; F17.210 Nicotine dependence, cigarettes, uncomplicated; E66.9 Obesity, unspecified; Z68.35 Body mass index [BMI] 35.0-35.9, adult; Z79.1 Long term (current) use of non-steroidal anti-inflammatories (NSAID); Z79.84 Long term (current) use of oral hypoglycemic drugs; Z79.899 Other long term (current) drug therapy; Z91.041 Radiographic dye allergy status
CPT/HCPCS: 36415; 73560-26-RT; 73560-RT; 80048; 82962; 83036; 85014; 85018; 86850; 86900; 86901; 97161-GP; 97530-GP; A9270-GY; C1776; J0690; J1100; J1815-GY; J1885; J2001; J2250; J2270; J2405; J2704; J3010; J3490; J7120

== ENCOUNTER 2020-02-17 06:31 | Day surgery (SDC) | payer BC ==
[2020-02-17] MEDS: Lactated Ringers 1,000 ML IV SCH ×2 (07:00→14:15)
[2020-02-17] MEDS ORDERED: Propofol 200 MG/20 ML SDV ONE ×3 (07:11→09:48)
[2020-02-17] MEDS ORDERED: Ketamine 500 mg/10 ML MDV ONE (07:11)
[2020-02-17] MEDS ORDERED: Midazolam 1 MG/ML 2 ML SDV ONE (07:14)
[2020-02-17] MEDS ORDERED: fentaNYL 100 MCG/2 ML SDV ONE (07:15)
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
[2020-02-17] MEDS ORDERED: Famotidine 20 MG/2 ML SDV IVPUSH SCH (07:30)
[2020-02-17] MEDS ORDERED: Tranexamic Acid 1,000 MG in Sodium Chloride 0.9% 100 ML IV ONE (08:00)
[2020-02-17] MEDS ORDERED: ceFAZolin 1 GM Vial ONE (08:22)
[2020-02-17] MEDS ORDERED: Dexamethasone 4 MG/ML 5 ML MDV ONE ×2 (08:23→11:04)
[2020-02-17] MEDS ORDERED: Ondansetron 4 MG/2 ML SDV ONE (08:24)
[2020-02-17] MEDS ORDERED: Bupivacaine 0.25% 10 ML SDV ONE (10:55)
[2020-02-17] MEDS ORDERED: Morphine 2 MG/ML SYRINGE IVPUSH PRN (11:08)
[2020-02-17] MEDS ORDERED: diphenhydrAMINE 25 MG Cap PO PRN (11:08)
[2020-02-17] MEDS ORDERED: Docusate Sodium 100 MG Cap PO PRN (11:08)
[2020-02-17] MEDS ORDERED: Ondansetron 4 MG/2 ML SDV IVPUSH PRN (11:08)
[2020-02-17] MEDS ORDERED: Sodium Chloride 0.9% 2.5 ML Syringe FLUSH PRN (11:08)
[2020-02-17] MEDS ORDERED: Aluminum Hydroxide/Magnesium Hydroxide/Simethicone Susp 30 ML Cup PO PRN (11:08)
[2020-02-17] MEDS ORDERED: Sodium Chloride 0.9% 10 ML Syringe FLUSH PRN (11:08)
[2020-02-17] MEDS ORDERED: Polyethylene Glycol 3350 Powder 17 GM Packet PO PRN (11:08)
[2020-02-17] MEDS ORDERED: Bisacodyl 10 MG Supp RECTAL PRN (11:08)
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
--- NOTE | 2020-02-17 11:17 | PCM.OPNOTE ---
- General Post-Op/Procedure Note Date of Surgery/Procedure: 02/17/20 Condition: Good
[2020-02-17] MEDS ORDERED: Ketorolac 30 MG/ML SDV ONE (11:22)
--- NOTE | 2020-02-17 11:25 | PCM.SN.2 ---
- Free Text/Narrative Note: 02/17/20 anesthesia time [id number]. Adductor canal block administered under ultrasound using 20g 4" stimulplex needle. Negative to aspiration, 20ml 0.25% marcaine. US picture in physical chart. Patient tolerated well.
[2020-02-17] MEDS: Ketorolac 30 MG/ML SDV IVPUSH SCH ×3 (11:30→23:33)
--- NOTE | 2020-02-17 11:47 | PCM.POSTAN ---
POST ANESTHESIA ASSESSMENT - MENTAL STATUS Mental Status: Alert, Oriented - VITAL SIGNS Vital Signs: Last Vital Signs Temp 98.2 F 02/17/20 10:54 Pulse 59 L 02/17/20 11:44 Resp 18 02/17/20 11:44 BP 103/67 02/17/20 11:44 Pulse Ox 94 L 02/17/20 11:44 - RESPIRATORY Respiratory Status: Respiratory Rate WNL, Airway Patent, O2 Saturation Stable - CARDIOVASCULAR CV Status: Pulse Rate WNL, Blood Pressure Stable - GASTROINTESTINAL GI Status: No Symptoms - POST OP HYDRATION Hydration Status: Adequate & Stable
[2020-02-17] MEDS: oxyCODONE 5 MG Tab PO PRN (12:30)
[2020-02-17 12:53] LABS: BLOOD UREA NITROGEN,BUN 18 mg/dL (7.0-18.0); CHLORIDE,CL 107 mmol/L (98-107); GLUCOSE RANDOM 128 mg/dL (74-106); POTASSIUM,K 4.4 mmol/L (3.5-5.1); SODIUM,NA 141 mmol/L (136-148)
--- NOTE | 2020-02-17 13:03 | CR ---
Left knee: AP and lateral views of the left knee were obtained. Comparison: Knee exam of 05/26/19 is available. Knee prosthesis is seen. Components are aligned. Soft tissue air is noted from the surgical procedure. Underlying bony structures are intact. Impression: 1. Satisfactory postop radiographic appearance of recently placed left knee prosthesis. Diagnostic code #2 This report was dictated in MDT
--- NOTE | 2020-02-17 14:34 | PCM.CONS ---
H&P History of Present Illness - General Date of Service: 02/17/20 Admit Problem/Dx: s/p LEFT total knee arthroplasty Source of Information: Patient, Old Records History Limitations: Reports: No Limitations - History of Present Illness Initial Comments - Free Text/Narative: This 65 year old male with pmh of DM type 2 and is a smoker presented for a L TKA with Dr De Leon today. Hospitalist service consulted for medical management of diabetes. Artemio recently arrived to the unit from PACU. He is alert and oriented. denies chest pain or palpitations. Reports knee pain is better since getting some pain medications Upon review of records, A1c was 7.2. He is stable on Metformin. He does smoke 1/2 ppd cigarettes, counseled him on quitting, reports he is not motivated to quit at this time. Does have a history of DVT after an accident in 1969, nothing since. Had R TKA this August, no DVT and was covered with ASA. Left Knee Pain Score (Numeric/FACES): 2 - Related Data Allergies/Adverse Reactions: Allergies Allergy/AdvReac Type Severity Reaction Status Date / Time contrast dye Allergy Dizziness Uncoded 02/17/20 12:38 Home Medications: Home Meds polyethylene glycoL 3350 [MiraLAX] 1 dose PO DAILY 07/08/17 [History] Rosuvastatin Calcium 10 mg PO DAILY 08/28/19 [History] Aspirin 325 mg PO DAILY #30 tablet 09/03/19 [Rx] metFORMIN [Glucophage] 500 mg PO BID tablet 09/03/19 [Rx] Diclofenac Sodium [Voltaren 1% Gel] 1 applic TOP ASDIRECTED PRN 02/12/20 [History] Acetaminophen [Tylenol] 650 mg PO Q6H PRN tablet 02/17/20 [Rx] Aspirin 325 mg PO DAILY #90 tablet 02/17/20 [Rx] Docusate Sodium [Colace] 100 mg PO BID PRN cap 02/17/20 [Rx] Ibuprofen [Motrin] 600 mg PO Q6H PRN #90 tablet 02/17/20 [Rx] polyethylene glycoL 3350 [MiraLAX] 17 gm PO DAILY PRN packet 02/17/20 [Rx] Past Medical History HEENT History: Reports: Other (See Below) Other HEENT History: wears glasses, has top denture Cardiovascular History: Reports: Blood Clots/VTE/DVT, High Cholesterol Other Cardiovascular History: DVT to lower extremity at the age of 15 Respiratory History: Reports: None Gastrointestinal History: Reports: Other (See Below) Genitourinary History: Reports: Renal Calculus Musculoskeletal History: Reports: Fracture, Osteoarthritis Other Musculoskeletal History: hx fx clavicle and head injury Neurological History: Reports: Head Trauma Other Neuro History: 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 Psychiatric History: Reports: None Endocrine/Metabolic History: Reports: Diabetes, Type II, Obesity/BMI 30+ Hematologic History: Reports: None Immunologic History: Reports: None Oncologic (Cancer) History: Reports: None Dermatologic History: Reports: None - Infectious Disease History Infectious Disease History: Reports: Chicken Pox, Measles, Mumps - Past Surgical History Head Surgeries/Procedures: Reports: None HEENT Surgical History: Reports: None Cardiovascular Surgical History: Reports: None Respiratory Surgical History: Reports: None GI Surgical History: Reports: Colon, Colonoscopy, Other (See Below) Other GI Surgeries/Procedures: 1969 colon resection for possible hirschsprung's disease Male Surgical History: Reports: Lithotripsy ([facility]) Endocrine Surgical History: Reports: None Neurological Surgical History: Reports: None Musculoskeletal Surgical History: Reports: Arthroscopic Knee, Knee Replacement Other Musculoskeletal Surgeries/Procedures:: right TKA, hx of spurs Oncologic Surgical History: Reports: None Dermatological Surgical History: Reports: None Social & Family History - Family History Family Medical History: Noncontributory - Tobacco Use Smoking Status *Q: Current Every Day Smoker Years of Tobacco use: 40 Packs/Tins Daily: 0.5 - Caffeine Use Caffeine Use: Reports: Coffee - Alcohol Use Alcohol Use History: No - Recreational Drug Use Drug Use in Last 12 Months: No H&P Review of Systems - Review of Systems: Review Of Systems: See Below General: Reports: No Symptoms. Denies: Fever, Chills, Malaise HEENT: Reports: No Symptoms. Denies: Headaches, Sinus Congestion, Sore Throat Pulmonary: Reports: No Symptoms. Denies: Shortness of Breath, Cough, Sputum Cardiovascular: Reports: No Symptoms. Denies: Chest Pain, Palpitations, Edema Gastrointestinal: Reports: No Symptoms. Denies: Abdominal Pain, Black Stool, Bloody Stool, Nausea, Vomiting Genitourinary: Reports: No Symptoms. Denies: Dysuria, Frequency Musculoskeletal: Reports: No Symptoms Skin: Reports: No Symptoms Psychiatric: Reports: No Symptoms Neurological: Reports: No Symptoms. Denies: Headache Hematologic/Lymphatic: Reports: No Symptoms Immunologic: Reports: No Symptoms Exam - Exam Exam: See Below - Vital Signs Vital Signs: Last Vital Signs Temp 97.3 F 02/17/20 14:03 Pulse 60 02/17/20 14:03 Resp 14 02/17/20 14:03 BP 101/57 L 02/17/20 14:03 Pulse Ox 93 L 02/17/20 14:03 Weight: 120.202 kg - Exam General: Alert, Oriented, Cooperative Lungs: Clear to Auscultation, Normal Respiratory Effort Cardiovascular: Regular Rate, Regular Rhythm GI/Abdominal Exam: Normal Bowel Sounds, Soft, Non-Tender Back Exam: Normal Inspection, Full Range of Motion Extremities: Normal Inspection, Normal Range of Motion, Non-Tender, No Pedal Edema Neuro Extensive - Mental Status: Alert, Oriented x3 Neuro Extensive - Motor, Sensory, Reflexes: CN II-XII Intact Psychiatric: Alert, Normal Affect, Normal Mood - Patient Data Lab Results Last 24 hrs: Laboratory Results - last 24 hr 02/17/20 02/17/20 02/17/20 Range/Units 07:10 12:30 12:30 WBC 10.60 (4.0-11.0) K/uL RBC 4.41 L (4.50-5.90) M/uL Hgb 13.8 (13.0-17.0) g/dL Hct 41.3 (38.0-50.0) % MCV 93.7 (80.0-98.0) fL MCH 31.3 (27.0-32.0) pg MCHC 33.4 (31.0-37.0) g/dL RDW Std Deviation 44.3 (28.0-62.0) fl RDW Coeff of Ad 13 (11.0-15.0) % Plt Count 215 (150-400) K/uL MPV 9.20 (7.40-12.00) fL Neut % (Auto) 71.7 (48.0-80.0) % Lymph % (Auto) 17.4 (16.0-40.0) % [place] % (Auto) 8.1 (0.0-15.0) % Eos % (Auto) 2.3 (0.0-7.0) % Baso % (Auto) 0.5 (0.0-1.5) % Neut # (Auto) 7.6 H (1.4-5.7) K/uL Lymph # (Auto) 1.8 (0.6-2.4) K/uL [place] # (Auto) 0.9 H (0.0-0.8) K/uL Eos # (Auto) 0.2 (0.0-0.7) K/uL Baso # (Auto) 0.1 (0.0-0.1) K/uL Nucleated RBC % 0.0 /100WBC Nucleated RBCs # 0 K/uL Sodium 141 (136-148) mmol/L Potassium 4.4 (3.5-5.1) mmol/L Chloride 107 (98-107) mmol/L Carbon Dioxide 26.0 (21.0-32.0) mmol/L BUN 18 (7.0-18.0) mg/dL Creatinine 1.1 (0.8-1.3) mg/dL Est Cr Clr Drug Dosing 77.68 mL/min Estimated GFR (MDRD) > 60.0 ml/min Glucose 128 H (74-106) mg/dL Calcium 8.5 (8.5-10.1) mg/dL Magnesium 1.9 (1.8-2.4) mg/dL Blood Type A POSITIVE Antibody Screen NEGATIVE Result Diagrams: 02/17/20 12:30 02/17/20 12:30 Sepsis Event Note - Evaluation Sepsis Screening Result: No Definite Risk - Focused Exam Vital Signs: Vital Signs Temp Pulse Resp BP BP Pulse Ox 02/17/20 14:03 97.3 F 60 14 101/57 L 93 L 02/17/20 13:30 61 14 100/63 92 L 02/17/20 13:00 59 L 16 105/71 97 02/17/20 12:38 62 16 105/71 96 02/17/20 12:00 97.3 F 62 14 115/76 96 02/17/20 11:44 59 L 18 103/67 94 L 02/17/20 11:38 59 L 12 100/64 94 L 02/17/20 11:33 63 14 111/66 94 L 02/17/20 11:26 64 16 90/58 L 97 02/17/20 11:21 57 L 20 102/62 98 08/26/20 11:16 53 L 20 104/56 L 100 02/17/20 11:11 63 20 97/58 L 97 02/17/20 11:09 61 20 99/60 97 02/17/20 11:01 62 20 95/52 L 97 02/17/20 10:56 64 20 97/58 L 98 02/17/20 10:54 98.2 F 64 18 101/60 98 02/17/20 06:45 97.7 F 77 16 123/79 97 Consult PN Assessment/Plan POD#: 0 Procedures: Procedures ASSAY OF BLOOD/URIC ACID (07/08/17) ASSAY OF LIPASE (02/05/19) BLOOD TYPING SEROLOGIC ABO (09/02/19) BLOOD TYPING SEROLOGIC RH(D) (09/02/19) COMPLETE CBC W/AUTO DIFF WBC (02/05/19) COMPREHEN METABOLIC PANEL (02/05/19) CT ABD & PELVIS W/O CONTRAST (02/05/19) ELECTROCARDIOGRAM TRACING (02/05/19) EMERGENCY DEPT VISIT (02/05/19) EMERGENCY DEPT VISIT (07/08/17) GLUCOSE BLOOD TEST (09/02/19) GLYCOSYLATED HEMOGLOBIN TEST (09/02/19) HEMATOCRIT (09/02/19) HEMOGLOBIN (09/02/19) HOT OR COLD PACKS THERAPY (09/21/19) HYDRATE IV INFUSION ADD-ON (01/27/19) HYDRATION IV INFUSION INIT (02/05/19) METABOLIC PANEL TOTAL CA (09/02/19) PT EVAL LOW COMPLEX 20 MIN (09/21/19) RBC ANTIBODY SCREEN (09/02/19) ROUTINE VENIPUNCTURE (09/02/19) THER/PROPH/DIAG INJ IV PUSH (01/27/19) THERAPEUTIC ACTIVITIES (09/02/19) THERAPEUTIC EXERCISES (11/03/19) TOTAL KNEE ARTHROPLASTY (09/02/19) TX/PRO/DX INJ NEW DRUG ADDON (01/27/19) URINALYSIS AUTO W/SCOPE (02/05/19) VASOPNEUMATIC DEVICE THERAPY (10/19/19) X-RAY EXAM KNEE 4 OR MORE (07/16/17) X-RAY EXAM L-S SPINE 2/3 VWS (01/21/15) X-RAY EXAM OF KNEE 1 OR 2 (12/03/19) X-RAY EXAM OF KNEE 3 (07/08/17) (1) Smoker SNOMED Code(s): 13880025 Code(s): F17.200 - NICOTINE DEPENDENCE, UNSPECIFIED, UNCOMPLICATED Current Visit: Yes (2) S/P total knee arthroplasty SNOMED Code(s): 5213333575479, 714811298, 5351763357340 Code(s): Z96.659 - PRESENCE OF UNSPECIFIED ARTIFICIAL KNEE JOINT Current Visit: Yes Qualifiers: Laterality: left Qualified Code(s): Z96.652 - Presence of left artificial knee joint (3) Diabetes SNOMED Code(s): 01417332 Code(s): E11.9 - TYPE 2 DIABETES MELLITUS WITHOUT COMPLICATIONS Current Visit: No Qualifiers: Diabetes mellitus type: type 2 Problem List Initiated/Reviewed/Updated: No My Orders Last 24 Hours: My Active Orders 02/17/20 13:28 Blood Glucose Check, Bedside [RC] TIDAC 02/17/20 17:00 Insulin Aspart [NovoLOG] See Protocol SUBCUT TIDAC 02/17/20 21:00 Rosuvastatin [Crestor] 10 mg PO BEDTIME 02/18/20 05:11 BMP [BASIC METABOLIC PANEL,BMP] [CHEM] AM 02/18/20 09:00 polyethylene glycoL 3350 [MiraLAX] 17 gm PO DAILY Plan: This 65 year old male admitted for L TKA, hospitalist service consulted for medical management of DM type 2 1. S/P L TKA - Orders per Orthopedics 2. DM type 2: - Controlled - Hold metformin in the hospital, may restart on discharge - Novolog SSI - Blood sugar checks TIDAC - Last A1c 7.2 VTE prophylaxis: Recommended when deemed appropriate by Orthopedics. Discussed treatment plan with Dr Moses.
[2020-02-17] MEDS ORDERED: Acetaminophen 325 MG Tab PO PRN (15:00)
[2020-02-17] MEDS: ceFAZolin 2 GM in Premix Bag 1 BAG IV SCH ×2 (16:01→23:38)
[2020-02-17] MEDS: Aspirin 325 MG Tab PO SCH (16:14)
[2020-02-17] MEDS: Insulin Aspart 100 Units/ML 3 ML Pen SUBCUT SCH (16:17)
[2020-02-17] MEDS ORDERED: Rosuvastatin 10 MG Tab PO SCH (21:00)
[2020-02-18 06:17] LABS: BLOOD UREA NITROGEN,BUN 23 mg/dL (7.0-18.0); CARBON DIOXIDE,CO2 24.1 mmol/L (21.0-32.0); CHLORIDE,CL 105 mmol/L (98-107); GLUCOSE RANDOM 129 mg/dL (74-106); POTASSIUM,K 4.3 mmol/L (3.5-5.1); SODIUM,NA 138 mmol/L (136-148)
--- NOTE | 2020-02-18 07:53 | PCM48HPAN ---
Post Anesthesia Note - EVALUATION WITHIN 48HRS OF ANESTHETIC Vital Signs in Normal Range: Yes Patient Participated in Evaluation: Yes Respiratory Function Stable: Yes Airway Patent: Yes Cardiovascular Function Stable: Yes Hydration Status Stable: Yes Pain Control Satisfactory: Yes Nausea and Vomiting Control Satisfactory: Yes Mental Status Recovered: Yes Vital Signs: Last Vital Signs Temp 96.7 F L 02/18/20 07:24 Pulse 58 L 02/18/20 07:24 Resp 16 02/18/20 07:24 BP 105/59 L 02/18/20 07:24 Pulse Ox 97 02/18/20 07:24 - COMMENTS/OBSERVATIONS Free Text/Narrative:: Pt. reported good pain relief with the adductor canal block. The patient had been up walking around.
[2020-02-18] MEDS: Insulin Aspart 100 Units/ML 3 ML Pen SUBCUT SCH (07:54)
[2020-02-18] MEDS: Aspirin 325 MG Tab PO SCH (08:53)
[2020-02-18] MEDS ORDERED: Famotidine 20 MG Tab PO SCH (09:00)
[2020-02-18] MEDS ORDERED: Polyethylene Glycol 3350 Powder 17 GM Packet PO SCH (09:00)
[2020-02-18] MEDS ORDERED: Ibuprofen 600 MG Tab PO PRN (09:00)
--- NOTE | 2020-02-18 09:05 | PCM.CONSN ---
- General Info Date of Service: 02/18/20 Admission Dx/Problem (Free Text): s/p LEFT total knee arthroplasty Subjective Update: Doing well this morning, pain is controlled. No chest pain or SOB. Eager for discharge home today. - Review of Systems General: Reports: No Symptoms. Denies: Weakness, Fatigue Pulmonary: Reports: No Symptoms. Denies: Shortness of Breath Cardiovascular: Reports: No Symptoms. Denies: Chest Pain Gastrointestinal: Reports: No Symptoms. Denies: Abdominal Pain, Nausea, Vomiting Genitourinary: Reports: No Symptoms. Denies: Dysuria, Frequency Musculoskeletal: Reports: Joint Pain (knee pain, but controlled) Skin: Reports: No Symptoms Neurological: Reports: No Symptoms Psychiatric: Reports: No Symptoms - Patient Data Vitals - Most Recent: Last Vital Signs Temp 96.7 F L 02/18/20 07:24 Pulse 58 L 02/18/20 07:24 Resp 16 02/18/20 07:24 BP 105/59 L 02/18/20 07:24 Pulse Ox 97 02/18/20 07:24 Weight - Most Recent: 120.202 kg I&O - Last 24 Hours: Intake & Output 02/17/20 02/18/20 02/18/20 22:59 06:59 14:59 Intake Total 1287 1050 Output Total 500 Balance 1287 550 Lab Results Last 24 Hours: Laboratory Results - last 24 hr 02/17/20 02/17/20 02/17/20 Range/Units 12:30 12:30 16:10 WBC 10.60 (4.0-11.0) K/uL RBC 4.41 L (4.50-5.90) M/uL Hgb 13.8 (13.0-17.0) g/dL Hct 41.3 (38.0-50.0) % MCV 93.7 (80.0-98.0) fL MCH 31.3 (27.0-32.0) pg MCHC 33.4 (31.0-37.0) g/dL RDW Std Deviation 44.3 (28.0-62.0) fl RDW Coeff of Ad 13 (11.0-15.0) % Plt Count 215 (150-400) K/uL MPV 9.20 (7.40-12.00) fL Neut % (Auto) 71.7 (48.0-80.0) % Lymph % (Auto) 17.4 (16.0-40.0) % [place] % (Auto) 8.1 (0.0-15.0) % Eos % (Auto) 2.3 (0.0-7.0) % Baso % (Auto) 0.5 (0.0-1.5) % Neut # (Auto) 7.6 H (1.4-5.7) K/uL Lymph # (Auto) 1.8 (0.6-2.4) K/uL [place] # (Auto) 0.9 H (0.0-0.8) K/uL Eos # (Auto) 0.2 (0.0-0.7) K/uL Baso # (Auto) 0.1 (0.0-0.1) K/uL Nucleated RBC % 0.0 /100WBC Nucleated RBCs # 0 K/uL Sodium 141 (136-148) mmol/L Potassium 4.4 (3.5-5.1) mmol/L Chloride 107 (98-107) mmol/L Carbon Dioxide 26.0 (21.0-32.0) mmol/L BUN 18 (7.0-18.0) mg/dL Creatinine 1.1 (0.8-1.3) mg/dL Est Cr Clr Drug Dosing 77.68 mL/min Estimated GFR (MDRD) > 60.0 ml/min Glucose 128 H (74-106) mg/dL POC Glucose 170 H (60-110) mg/dL Calcium 8.5 (8.5-10.1) mg/dL Magnesium 1.9 (1.8-2.4) mg/dL 02/18/20 02/18/20 02/18/20 Range/Units 05:12 05:12 06:32 WBC (4.0-11.0) K/uL RBC (4.50-5.90) M/uL Hgb 12.6 L (13.0-17.0) g/dL Hct 38.1 (38.0-50.0) % MCV (80.0-98.0) fL MCH (27.0-32.0) pg MCHC (31.0-37.0) g/dL RDW Std Deviation (28.0-62.0) fl RDW Coeff of Ad (11.0-15.0) % Plt Count (150-400) K/uL MPV (7.40-12.00) fL Neut % (Auto) (48.0-80.0) % Lymph % (Auto) (16.0-40.0) % [place] % (Auto) (0.0-15.0) % Eos % (Auto) (0.0-7.0) % Baso % (Auto) (0.0-1.5) % Neut # (Auto) (1.4-5.7) K/uL Lymph # (Auto) (0.6-2.4) K/uL [place] # (Auto) (0.0-0.8) K/uL Eos # (Auto) (0.0-0.7) K/uL Baso # (Auto) (0.0-0.1) K/uL Nucleated RBC % /100WBC Nucleated RBCs # K/uL Sodium 138 (136-148) mmol/L Potassium 4.3 (3.5-5.1) mmol/L Chloride 105 (98-107) mmol/L Carbon Dioxide 24.1 (21.0-32.0) mmol/L BUN 23 H (7.0-18.0) mg/dL Creatinine 1.2 (0.8-1.3) mg/dL Est Cr Clr Drug Dosing 71.21 mL/min Estimated GFR (MDRD) > 60.0 ml/min Glucose 129 H (74-106) mg/dL POC Glucose 122 H (60-110) mg/dL Calcium 8.7 (8.5-10.1) mg/dL Magnesium (1.8-2.4) mg/dL Med Orders - Current: Current Medications Acetaminophen (Tylenol) 650 mg PO Q6H PRN PRN Reason: Pain Al Hydroxide/Mg Hydroxide (Mag-Al Plus) 30 ml PO Q4H PRN PRN Reason: Indigestion Aspirin (Aspirin) 325 mg PO DAILY OPAL Last Admin: 02/17/20 16:14 Dose: 325 mg Documented by: Bisacodyl (Dulcolax) 10 mg RECTAL DAILY PRN PRN Reason: Constipation Diphenhydramine HCl (Benadryl) 25 - 50 mg PO Q6H PRN PRN Reason: Itching Docusate Sodium (Colace) 100 mg PO BID PRN PRN Reason: Constipation Famotidine (Pepcid) 40 mg IVPUSH ONARRIVE [facility] Famotidine (Pepcid) 40 mg PO DAILY [facility] Ropivacaine 49.25 ml/Ketorolac Tromethamine 30 mg/Epinephrine HCl 0.5 mg/Clonidine HCl 80 mcg/ Sodium Chloride 75 mls @ 50 mls/sec INJECT ASDIRECTED [facility] Cefazolin Sodium/Dextrose 3 gm (/ Premix) 75 mls @ 100 mls/hr IV ONCALL [facility] Lactated Ringer's (Ringers, Lactated) 1,000 mls @ 100 mls/hr IV ASDIRECTED OPAL Last Admin: 02/17/20 14:15 Dose: 100 mls/hr Documented by: Ibuprofen (Motrin) 600 mg PO Q6H PRN PRN Reason: Pain Insulin Aspart (Novolog) 0 unit SUBCUT TIDAC [facility]; Protocol Last Admin: 02/18/20 07:54 Dose: Not Given Documented by: Morphine Sulfate (Morphine) 1 - 2 mg IVPUSH Q3H PRN PRN Reason: Pain Ondansetron HCl (Zofran) 4 mg IVPUSH Q6H PRN PRN Reason: Nausea/Vomiting Oxycodone HCl (Oxycodone) 5 - 10 mg PO Q4H PRN PRN Reason: Pain Last Admin: 02/17/20 12:30 Dose: 10 mg Documented by: Polyethylene Glycol (Miralax) 17 gm PO DAILY PRN PRN Reason: Constipation Last Admin: 02/17/20 16:16 Dose: 17 gm Documented by: Polyethylene Glycol (Miralax) 17 gm PO DAILY [facility] Rosuvastatin Calcium (Crestor) 10 mg PO BEDTIME [facility] Last Admin: 02/17/20 21:09 Dose: 10 mg Documented by: Scopolamine (Transderm-Scop) 1.5 mg TRDERM ONARRIVE [facility] Last Admin: 02/17/20 07:16 Dose: 1.5 mg Documented by: Sodium Chloride (Saline Flush) 10 ml FLUSH ASDIRECTED PRN PRN Reason: Keep Vein Open Sodium Chloride (Saline Flush) 2.5 ml FLUSH ASDIRECTED PRN PRN Reason: Keep Vein Open Discontinued Medications Bupivacaine HCl (Sensorcaine-Mpf 0.25%) Confirm Administered Dose 20 ml .ROUTE .STK-MED ONE Stop: 02/17/20 10:56 Cefazolin Sodium (Ancef) Confirm Administered Dose 3 gm .ROUTE .ST-MED ONE Stop: 02/17/20 08:23 Dexamethasone (Dexamethasone) Confirm Administered Dose 20 mg .ROUTE .STK-MED ONE Stop: 02/17/20 08:24 Dexamethasone (Dexamethasone) Confirm Administered Dose 20 mg .ROUTE .ST-MED ONE Stop: 02/17/20 11:05 Fentanyl (Sublimaze) Confirm Administered Dose 100 mcg .ROUTE .ST-MED ONE Stop: 02/17/20 07:16 Tranexamic Acid 1,000 mg/ (Sodium Chloride) 110 mls @ 600 mls/hr IV ASDIRECTED ONE Stop: 02/17/20 08:10 Last Admin: 02/17/20 12:07 Dose: Not Given Documented by: Cefazolin Sodium/Dextrose 2 gm (/ Premix) 50 mls @ 100 mls/hr IV Q8H [facility] Stop: 02/18/20 00:29 Last Admin: 02/17/20 23:38 Dose: 100 mls/hr Documented by: Ketamine HCl (Ketalar) Confirm Administered Dose 500 mg .ROUTE .ST-MED ONE Stop: 02/17/20 07:12 Ketorolac Tromethamine (Toradol) Confirm Administered Dose 30 mg .ROUTE .ST-MED ONE Stop: 02/17/20 11:23 Last Admin: 02/17/20 12:08 Dose: Not Given Documented by: Ketorolac Tromethamine (Toradol) 30 mg IVPUSH Q6H [facility] Stop: 02/18/20 05:00 Last Admin: 02/17/20 23:33 Dose: 30 mg Documented by: Midazolam HCl (Versed 1 Mg/Ml) Confirm Administered Dose 2 mg .ROUTE .ST-MED ONE Stop: 02/17/20 07:15 Ondansetron HCl (Zofran) Confirm Administered Dose 4 mg .ROUTE .ST-MED ONE Stop: 02/17/20 08:25 Propofol (Diprivan 20 Ml) Confirm Administered Dose 600 mg .ROUTE .STK-MED ONE Stop: 02/17/20 07:12 Propofol (Diprivan 20 Ml) Confirm Administered Dose 200 mg .ROUTE .ST-MED ONE Stop: 02/17/20 09:48 Propofol (Diprivan 20 Ml) Confirm Administered Dose 400 mg .ROUTE .STK-MED ONE Stop: 02/17/20 09:49 Tranexamic Acid (Cyklokapron) Confirm Administered Dose 1,000 mg .ROUTE .STK-MED ONE Stop: 02/17/20 08:27 - Exam General: Alert, Oriented, Cooperative, No Acute Distress Lungs: Clear to Auscultation, Normal Respiratory Effort Cardiovascular: Regular Rate, Regular Rhythm Extremities: Normal Inspection, Normal Range of Motion, Non-Tender, No Pedal Edema Wound/Incisions: Healing Well, Other (incision to L knee, dressing dry and intact. ) Psy/Mental Status: Alert, Normal Affect, Normal Mood Sepsis Event Note - Evaluation Sepsis Screening Result: No Definite Risk - Focused Exam Vital Signs: Vital Signs Temp Pulse Resp BP Pulse Ox 02/18/20 07:24 96.7 F L 58 L 16 105/59 L 97 02/18/20 04:00 97.8 F 60 15 106/59 L 93 L 02/17/20 23:30 97.9 F 60 15 105/65 94 L Consult PN Assessment/Plan POD#: 1 Procedures: Procedures ASSAY OF BLOOD/URIC ACID (07/08/17) ASSAY OF LIPASE (02/05/19) BLOOD TYPING SEROLOGIC ABO (09/02/19) BLOOD TYPING SEROLOGIC RH(D) (09/02/19) COMPLETE CBC W/AUTO DIFF WBC (02/05/19) COMPREHEN METABOLIC PANEL (02/05/19) CT ABD & PELVIS W/O CONTRAST (02/05/19) ELECTROCARDIOGRAM TRACING (02/05/19) EMERGENCY DEPT VISIT (02/05/19) EMERGENCY DEPT VISIT (07/08/17) GLUCOSE BLOOD TEST (09/02/19) GLYCOSYLATED HEMOGLOBIN TEST (09/02/19) HEMATOCRIT (09/02/19) HEMOGLOBIN (09/02/19) HOT OR COLD PACKS THERAPY (09/21/19) HYDRATE IV INFUSION ADD-ON (01/27/19) HYDRATION IV INFUSION INIT (02/05/19) METABOLIC PANEL TOTAL CA (09/02/19) PT EVAL LOW COMPLEX 20 MIN (09/21/19) RBC ANTIBODY SCREEN (09/02/19) ROUTINE VENIPUNCTURE (09/02/19) SARS-COV2 COVID-19 AMP PRB (02/15/20) THER/PROPH/DIAG INJ IV PUSH (01/27/19) THERAPEUTIC ACTIVITIES (09/02/19) THERAPEUTIC EXERCISES (11/03/19) TOTAL KNEE ARTHROPLASTY (09/02/19) TX/PRO/DX INJ NEW DRUG ADDON (01/27/19) URINALYSIS AUTO W/SCOPE (02/05/19) VASOPNEUMATIC DEVICE THERAPY (10/19/19) X-RAY EXAM KNEE 4 OR MORE (07/16/17) X-RAY EXAM L-S SPINE 2/3 VWS (01/21/15) X-RAY EXAM OF KNEE 1 OR 2 (12/03/19) X-RAY EXAM OF KNEE 3 (07/08/17) (1) Smoker SNOMED Code(s): 99402093 Code(s): F17.200 - NICOTINE DEPENDENCE, UNSPECIFIED, UNCOMPLICATED Current Visit: Yes (2) S/P total knee arthroplasty SNOMED Code(s): 7094734010177, 122604421, 3030906682568 Code(s): Z96.659 - PRESENCE OF UNSPECIFIED ARTIFICIAL KNEE JOINT Current Visit: Yes Qualifiers: Laterality: left Qualified Code(s): Z96.652 - Presence of left artificial knee joint (3) Diabetes SNOMED Code(s): 89425212 Code(s): E11.9 - TYPE 2 DIABETES MELLITUS WITHOUT COMPLICATIONS Current Visit: No Qualifiers: Diabetes mellitus type: type 2 Problem List Initiated/Reviewed/Updated: Yes My Orders Last 24 Hours: My Active Orders 02/17/20 13:28 Blood Glucose Check, Bedside [RC] TIDAC 02/17/20 17:00 Insulin Aspart [NovoLOG] See Protocol SUBCUT TIDAC 02/17/20 21:00 Rosuvastatin [Crestor] 10 mg PO BEDTIME 02/18/20 09:00 polyethylene glycoL 3350 [MiraLAX] 17 gm PO DAILY Plan: This 65 year old male admitted for L TKA, hospitalist service consulted for medical management of DM type 2 1. S/P L TKA - Orders per Orthopedics 2. DM type 2: - Controlled overnight. - May restart on discharge - Novolog SSI - Blood sugar checks TIDAC - Last A1c 7.2 VTE prophylaxis: Recommended when deemed appropriate by Orthopedics. Dispo: Likely home today per Orthopedics
[2020-02-18] MEDS: oxyCODONE 5 MG Tab PO PRN (09:16)
[2020-02-18 11:27] VITALS: BP 118/51; PULSE 70
--- NOTE | 2020-02-22 11:40 | DISCH ---
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 DISCHARGE MEDICAL DIAGNOSES: 1. Status post left total knee arthroplasty. 2. Diabetes mellitus type 2. HISTORY: This is a 65-year-old male with grade 4 left knee primary osteoarthritis who failed conservative treatment, underwent left total knee arthroplasty on 02/17/[address] Jan De Leon. No known surgical complications. A PERFECTO negative pressure wound dressing was applied after surgery. He also received an adductor canal block by Anesthesia. He was admitted to Med/Surg for postop care and physical therapy. HOSPITAL COURSE: Hospitalist was consulted for medical management of his diabetes. Postoperatively, Artemio did very well. Vital signs stable/afebrile. No postop nausea or vomiting. Pain was controlled with oral narcotic. Diligent use of Polar ice to surgical knee. He had minimal soft tissue swelling and no drainage on dressing, POD #1. Antibiotic coverage: Ancef 2 g x2 additional doses after surgery. DVT prophylaxis: ASA initiated day of surgery, ambulation, compression stockings, and bilateral SCDs. Blood work: Hemoglobin, POD #1, 12.6. PT was initiated in the hospital. He was ambulating well with walker. He thought ready to be discharged home, POD #1. DISCHARGE MEDICATIONS: 1. Acetaminophen 650 mg p.o. q.6 hours p.r.n. 2. Aspirin 325 mg daily x90 days. 3. Colace 100 mg b.i.d. p.r.n. 4. Ibuprofen 600 mg q.6 hours p.r.n. 5. Metformin 500 mg twice daily. 6. Oxycodone 5 mg 1 to 2 tablets every 4 hours p.r.n. 7. MiraLAX 17 g daily p.r.n. 8. Rosuvastatin 10 mg daily. DISCHARGE ORDERS: Followup appointment scheduled in 2 weeks with myself. Outpatient physical therapy set up at [facility] [address]. He was discharged home with his available for assistance. He has a walker already. He was informed if he has any questions or acute concerns to contact clinic. He was educated postop day 1 morning on PERFECTO negative pressure dressing. He was sent home with an Aquacel in the event of increased drainage and non-activation of the PERFECTO. He will return to clinic in 1 week for dressing change. LUBNA / REFUGIO /[id number]
== END 2020-02-18 11:20 | disposition home or self-care (01) ==
LOC: MW.SDS 06:31 → MW.MS 11:14 → MW.SDS 02-18 11:20
PROVIDERS: ATTEND Orthopaedic Surgery
DX: M17.12 Unilateral primary osteoarthritis, left knee (principal); M89.8X6 Other specified disorders of bone, lower leg; M25.762 Osteophyte, left knee; E78.00 Pure hypercholesterolemia, unspecified; E11.9 Type 2 diabetes mellitus without complications; E66.9 Obesity, unspecified; F17.210 Nicotine dependence, cigarettes, uncomplicated; Z91.041 Radiographic dye allergy status; Z79.82 Long term (current) use of aspirin; Z79.84 Long term (current) use of oral hypoglycemic drugs; Z96.651 Presence of right artificial knee joint; Z79.899 Other long term (current) drug therapy; Z68.35 Body mass index [BMI] 35.0-35.9, adult
CPT/HCPCS: 27447; 36415; 73560; 80048; 82962; 83735; 85014; 85018; 85025; 86850; 86900; 86901; 97116; 97161; A9270; J0690; J1100; J1815; J1885; J2250; J2704; J3010; J3490; J7120; 01402; 64450; 88304; 88311; J2405